=== PATIENT | female | born 1970 | race Caucasian/White ===

== ENCOUNTER 2017-08-11 07:49 | Day surgery (SDC) | payer MEDICAID ==
[~2017-08-11] VITALS: Ht 152.4 cm; Wt 77.4 kg
[~2017-08-11 07:49] MED LIST: FURO-150 PO; HYDR-569 PO; MAGN400C PO; MULT-38 PO; POTA10TA19 PO; SPIR50TA3 PO; THI100T PO
[2017-08-11] MEDS ORDERED: LIDOcaine 1% 30ml vial SQ ONE (08:00)
[2017-08-11 08:10] VITALS: BP 132/84
[2017-08-11] MEDS ORDERED: CYCL-1 PO (08:10)
[2017-08-11] MEDS ORDERED: albumin (human) 25% 100 ML IV solution IV PRN (08:15)
[2017-08-11] MEDS ORDERED: normal saline 1000ml 1,000 ML IV PRN (08:15)
[2017-08-11 08:45] VITALS: BP 115/76
[2017-08-11 09:00] VITALS: BP 108/73
[2017-08-11 09:10] VITALS: BP 106/72
== END 2017-08-11 09:20 | disposition home or self-care (01) ==
LOC: SSTAY O 07:49
PROVIDERS: ATTEND Radiology Diagnostic Radiology
DX: R18.8 Other ascites (principal); Z90.710 Acquired absence of both cervix and uterus; Z90.49 Acquired absence of other specified parts of digestive tract; Z79.899 Other long term (current) drug therapy
CPT/HCPCS: 49083; A6257; J3490; J7030

== ENCOUNTER 2017-09-08 07:44 | Day surgery (SDC) | payer MEDICAID ==
[~2017-09-08] VITALS: Ht 154.9 cm; Wt 80.8 kg
[~2017-09-08 07:44] MED LIST changes: +CYCL-1 PO
[2017-09-08] MEDS ORDERED: normal saline 1000ml 1,000 ML IV PRN (08:05)
[2017-09-08 08:30] VITALS: BP 114/76
[2017-09-08 08:35] VITALS: BP 117/85
[2017-09-08 08:43] VITALS: BP 129/83
[2017-09-08 08:45] VITALS: BP 121/71
[2017-09-08 08:55] VITALS: BP 107/60
[2017-09-08 09:00] VITALS: BP 129/83
== END 2017-09-08 09:00 | disposition home or self-care (01) ==
LOC: SSTAY O 07:44
PROVIDERS: ATTEND Radiology Diagnostic Radiology
DX: R18.8 Other ascites (principal)
CPT/HCPCS: 49083; A6257

== ENCOUNTER 2017-10-18 07:54 | Day surgery (SDC) | payer MEDICAID ==
[~2017-10-18] VITALS: Ht 152.4 cm; Wt 83.3 kg
[2017-10-18] MEDS ORDERED: SPIR50TA3 PO (08:26)
[2017-10-18 08:30] VITALS: BP_SYST 124; BP_SYST 155; BP_DIAS 78; BP_DIAS 85
[2017-10-18] MEDS ORDERED: normal saline 1000ml 1,000 ML IV PRN (08:35)
[2017-10-18] MEDS ORDERED: albumin (human) 25% 100 ML IV solution IV PRN (08:35)
[2017-10-18 08:45] VITALS: BP 122/72
[2017-10-18 08:57] VITALS: BP 112/62
== END 2017-10-18 09:00 | disposition home or self-care (01) ==
LOC: SSTAY O 07:54
PROVIDERS: ATTEND Radiology Diagnostic Radiology
DX: R18.8 Other ascites (principal); E83.42 Hypomagnesemia; Z87.891 Personal history of nicotine dependence; Z98.51 Tubal ligation status; Z90.710 Acquired absence of both cervix and uterus; Z90.49 Acquired absence of other specified parts of digestive tract; Z79.01 Long term (current) use of anticoagulants; Z98.890 Other specified postprocedural states; Z79.899 Other long term (current) drug therapy
CPT/HCPCS: 49083; A6257; J7030

== ENCOUNTER 2017-10-21 07:36 | Emergency (ER) | payer MEDICAID ==
[~2017-10-21] VITALS: Ht 387.1 cm; Wt 80.9 kg
[2017-10-21 09:01] LABS: CLARITY,URINE CLEAR (Clear); COLOR,URINE YELLOW (Yellow); GLUCOSE, URINE NEGATIVE (Neg); KETONES,URINE NEGATIVE (Neg); LEUKOCYTE ESTERASE ,URINE NEGATIVE (Neg); NITRITES, URINE NEGATIVE (Neg); OCCULT BLOOD,URINE NEGATIVE (Neg); PROTEIN,URINE NEGATIVE (Neg); UROBILINOGEN,URINE 0.2 E.U/dL (0.2-1.0)
[2017-10-21 09:03] LABS: UA COLLECTION TYPE CLN CATCH MIDSTREAM
[2017-10-21 09:07] LABS: URINE AMPHETAMINE SCREEN NEGATIVE (Neg); URINE BARBITUATE SCREEN NEGATIVE (Neg); URINE BENZODIAZEPINES SCREEN NEGATIVE (Neg); URINE CANNABINOID SCREEN POSITIVE (Neg); URINE COCAINE SCREEN NEGATIVE (Neg); URINE METHADONE SCREEN NEGATIVE (Neg); URINE OPIATE SCREEN NEGATIVE (Neg); URINE PHENCYCLIDINE SCREEN NEGATIVE (Neg)
[2017-10-21 09:07] LABS: BASOPHILS % (AUTO) 0.5 % (0-1); EOSINOPHILS # (AUTO) 0.1 X10'3 (0-0.9); HEMATOCRIT 41.4 % (35.0-45.0); HEMOGLOBIN 14.3 g/dl (12.0-16.0); LYMPHOCYTES # (AUTO) 0.8 X10'3 (1.1-4.8); LYMPHOCYTES % (AUTO) 11.7 % (21-51); MEAN CORPUSCULAR HEMOGLOBIN 38.4 PG (27.0-31.0); MEAN CORPUSCULAR HGB CONC 34.4 % (33.0-36.5); MEAN CORPUSCULAR VOLUME 111.4 FL (78-98); MEAN PLATELET VOLUME 7.7 FL (7.4-10.4); MONOCYTES # (AUTO) 0.4 X10'3 (0-0.9); MONOCYTES % (AUTO) 6.9 % (2-12); NEUTROPHILS % (AUTO) 78.9 % (42-75); PLATELET COUNT 100 X10'3 (140-440); RED BLOOD COUNT 3.72 X10'6 (4.20-5.60); RED CELL DISTRIBUTION WIDTH 13.9 % (11.5-14.5); WHITE BLOOD COUNT 6.4 X10'3 (4.5-11.0)
[2017-10-21 09:17] LABS: INR 1.4 INR; PARTIAL THROMBOPLASTIN TIME 33 SECONDS (22-32); PROTHROMBIN TIME 14.8 SECONDS (9.0-12.0)
[2017-10-21] MEDS ORDERED: normal saline 1000ML IV soln IVB ONE (09:20)
[2017-10-21 09:26] LABS: ALANINE AMINOTRANSFERASE 35 U/L (12-78); ALBUMIN 2.6 G/DL (3.4-5.0); ALBUMIN/GLOBULIN RATIO 0.5 (1.1-1.5); ALKALINE PHOSPHATASE 114 IU/L (46-116); ANION GAP 9 (8-16); ASPARTATE AMINO TRANSFERASE 70 U/L (10-37); BILIRUBIN,TOTAL 1.6 MG/DL (0.1-1.0); BLOOD UREA NITROGEN 10 MG/DL (7-18); BUN/CREATININE RATIO 14.1 (6.6-38.0); CALCIUM 8.4 MG/DL (8.5-10.1); CHLORIDE 105 MMOL/L (99-107); CREATININE 0.71 MG/DL (0.40-0.90); SODIUM 141 MMOL/L (135-145); TOTAL CARBON DIOXIDE 27.2 MMOL/L (24-32); eGFR 89 ML/MIN
[2017-10-21 09:28] LABS: ETHANOL < 0.010 GM/DL (0.0-0.010); GLUCOSE 113 MG/DL (70-104)
[2017-10-21 09:41] LABS: PLATELET ESTIMATE DECREASED
[2017-10-21 09:42] LABS: ACETAMINOPHEN < 2.0 UG/ML (10-30)
[2017-10-21] MEDS ORDERED: potassium Cl 20 mEq SR tablet PO ONE (10:00)
[2017-10-21 10:09] LABS: OCCULT BLOOD STOOL NEGATIVE (Neg)
[2017-10-21 11:17] VITALS: BP 125/74
== END 2017-10-21 11:19 | disposition home or self-care (01) ==
LOC: ER 07:37
DX: D68.9 Coagulation defect, unspecified (principal); E87.6 Hypokalemia; D69.6 Thrombocytopenia, unspecified; K72.90 Hepatic failure, unspecified without coma; F17.210 Nicotine dependence, cigarettes, uncomplicated; Z90.49 Acquired absence of other specified parts of digestive tract; Z98.890 Other specified postprocedural states; Z90.710 Acquired absence of both cervix and uterus; Z79.899 Other long term (current) drug therapy
CPT/HCPCS: 36415; 80053; 80305; 80320; 80329; 81003; 82140; 82272; 85025; 85384; 85610; 85730; 96360; 99284; J7030

== ENCOUNTER 2017-12-23 06:54 | Day surgery (SDC) | payer MEDICAID ==
[~2017-12-23] VITALS: Ht 182.9 cm; Wt 85.6 kg
[~2017-12-23 06:54] MED LIST changes: +LIDOcaine 1% (10mg/ml) 5ml syringe IJ ONE; -SPIR50TA3 PO; +SPIR50TA5 PO
[2017-12-23] MEDS ORDERED: LIDOcaine 1% (10mg/ml) 2ml vial SQ ONE (07:15)
[2017-12-23] MEDS ORDERED: FERR324T4 PO (07:17)
[2017-12-23 07:20] VITALS: BP 129/73
[2017-12-23] MEDS ORDERED: normal saline 1000ml 1,000 ML IV PRN (07:25)
[2017-12-23] MEDS ORDERED: albumin (human) 25% 100 ML IV solution IV PRN (07:25)
[2017-12-23 08:15] VITALS: BP 129/73
== END 2017-12-23 08:20 | disposition home or self-care (01) ==
LOC: SSTAY O 06:54
PROVIDERS: ATTEND Radiology Diagnostic Radiology
DX: R14.0 Abdominal distension (gaseous) (principal); E83.42 Hypomagnesemia; Z87.891 Personal history of nicotine dependence; Z98.51 Tubal ligation status; Z90.49 Acquired absence of other specified parts of digestive tract; Z90.710 Acquired absence of both cervix and uterus; Z79.891 Long term (current) use of opiate analgesic; Z98.890 Other specified postprocedural states; Z79.899 Other long term (current) drug therapy
CPT/HCPCS: 76705; J7030; J2001

== ENCOUNTER 2018-05-01 17:22 | Inpatient (IN) | payer MEDICAID ==
[~2018-05-01] VITALS: Ht 167.6 cm; Wt 110.0 kg
[~2018-05-01 17:22] MED LIST changes: +FERR324T4 PO; +HYDR-4383 PO; -HYDR-569 PO; -LIDOcaine 1% (10mg/ml) 5ml syringe IJ ONE
[2018-05-01 17:56] LABS: BASOPHILS # (AUTO) 0.2 X10'3 (0-0.2); BASOPHILS % (AUTO) 1.6 % (0-1); EOSINOPHILS # (AUTO) 0.1 X10'3 (0-0.9); EOSINOPHILS % (AUTO) 0.8 % (0-6); HEMATOCRIT 39.3 % (35.0-45.0); HEMOGLOBIN 13.1 g/dl (12.0-16.0); LYMPHOCYTES # (AUTO) 0.8 X10'3 (1.1-4.8); LYMPHOCYTES % (AUTO) 6.8 % (21-51); MEAN CORPUSCULAR HEMOGLOBIN 37.7 PG (27.0-31.0); MEAN CORPUSCULAR HGB CONC 33.4 % (33.0-36.5); MEAN PLATELET VOLUME 7.6 FL (7.4-10.4); MONOCYTES # (AUTO) 0.6 X10'3 (0-0.9); MONOCYTES % (AUTO) 5.4 % (2-12); NEUTROPHILS # (AUTO) 9.5 X10'3 (1.8-7.7); NEUTROPHILS % (AUTO) 85.4 % (42-75); PLATELET COUNT 130 X10'3 (140-440); RED BLOOD COUNT 3.48 X10'6 (4.20-5.60); RED CELL DISTRIBUTION WIDTH 14.7 % (11.5-14.5); WHITE BLOOD COUNT 11.2 X10'3 (4.5-11.0)
[2018-05-01 18:01] LABS: MEAN CORPUSCULAR VOLUME 112.9 FL (78-98)
[2018-05-01 18:06] LABS: INR 1.9 INR; PARTIAL THROMBOPLASTIN TIME 35 SECONDS (22-32); PROTHROMBIN TIME 18.8 SECONDS (9.0-12.0)
[2018-05-01 18:09] LABS: PLATELET ESTIMATE DECREASED
[2018-05-01 18:10] LABS: ALANINE AMINOTRANSFERASE 29 U/L (12-78); ALBUMIN 2.5 G/DL (3.4-5.0); ALKALINE PHOSPHATASE 172 IU/L (46-116); ANION GAP 10 (8-16); ASPARTATE AMINO TRANSFERASE 68 U/L (10-37); BLOOD UREA NITROGEN 24 MG/DL (7-18); BUN/CREATININE RATIO 12.2 (6.6-38.0); CALCIUM 9.5 MG/DL (8.5-10.1); CHLORIDE 89 MMOL/L (99-107); CREATININE 1.96 MG/DL (0.40-0.90); MAGNESIUM 2.9 MG/DL (1.5-2.4); POTASSIUM 3.9 MMOL/L (3.5-5.1); SODIUM 130 MMOL/L (135-145); TOTAL CARBON DIOXIDE 31.4 MMOL/L (24-32); eGFR 27 ML/MIN
[2018-05-01 18:29] LABS: ALBUMIN/GLOBULIN RATIO 0.4 (1.1-1.5); GLUCOSE 152 MG/DL (70-104); TOTAL PROTEIN 8.1 G/DL (6.4-8.2)
[2018-05-01 18:30] LABS: BILIRUBIN,TOTAL 8.9 MG/DL (0.1-1.0)
[2018-05-01] MEDS ORDERED: normal saline 1000ML IV soln IV ONE (18:30)
[2018-05-01] MEDS ORDERED: lactulose 20gm/30ml cup PO ONE (18:30)
[2018-05-01] MEDS ORDERED: CefTRIAXone 2gm/D5W 50ml 50 ML IV ONE (18:30)
[2018-05-01 18:37] LABS: BILIRUBIN,DIRECT 5.2 MG/DL (0-0.3)
[2018-05-01] MEDS ORDERED: albumin (human) 25% 100 ML IV solution IV ONE (18:45)
[2018-05-01 19:16] LABS: CLARITY,URINE CLEAR (Clear); COLOR,URINE DARK YELLOW (Yellow); GLUCOSE, URINE 100 mg/dl (Neg); KETONES,URINE TRACE mg/dl (Neg); LEUKOCYTE ESTERASE ,URINE NEGATIVE (Neg); NITRITES, URINE POSITIVE (Neg); OCCULT BLOOD,URINE TRACE-INTACT (Neg); PROTEIN,URINE TRACE mg/dl (Neg); UA COLLECTION TYPE CLN CATCH MIDSTREAM
[2018-05-01 19:20] LABS: URINE HCG NEGATIVE (NEG)
[2018-05-01 19:23] LABS: BACTERIA,URINE 2+ /HPF (Neg); MUCUS STRANDS NONE SEEN /LPF (Neg); RBC,URINE 0-2 /HPF (0-2); SQUAMOUS EPITHELIAL CELL,UR FEW /LPF (FEW)
[2018-05-01 19:28] LABS: URINE AMPHETAMINE SCREEN NEGATIVE (Neg); URINE BARBITUATE SCREEN NEGATIVE (Neg); URINE BENZODIAZEPINES SCREEN NEGATIVE (Neg); URINE CANNABINOID SCREEN POSITIVE (Neg); URINE COCAINE SCREEN NEGATIVE (Neg); URINE METHADONE SCREEN NEGATIVE (Neg); URINE OPIATE SCREEN POSITIVE (Neg); URINE PHENCYCLIDINE SCREEN NEGATIVE (Neg)
[2018-05-01] MEDS ORDERED: ondansetron/PF 4mg/2ml inj IV PRN (19:35)
[2018-05-01] MEDS: lactulose 20gm/30ml cup PO SCH (20:21)
[2018-05-01] MEDS ORDERED: OMEP40CA37 PO (20:34)
[2018-05-01] MEDS ORDERED: NADO20TA PO (20:34)
[2018-05-01] MEDS ORDERED: FURO40TA4 PO (20:34)
[2018-05-01] MEDS ORDERED: POTA-82 PO (20:34)
[2018-05-01 21:30] VITALS: BP 124/69
[2018-05-01] MEDS: heparin, porcine 5000 units/ml vial SQ SCH (23:01)
[2018-05-02] VITALS: BP 112/65
[2018-05-02 06:48] LABS: BASOPHILS % (AUTO) 0.4 % (0-1); EOSINOPHILS # (AUTO) 0.1 X10'3 (0-0.9); EOSINOPHILS % (AUTO) 1.6 % (0-6); HEMATOCRIT 34.6 % (35.0-45.0); HEMOGLOBIN 11.5 g/dl (12.0-16.0); LYMPHOCYTES # (AUTO) 1.5 X10'3 (1.1-4.8); LYMPHOCYTES % (AUTO) 15.5 % (21-51); MEAN CORPUSCULAR HEMOGLOBIN 38.2 PG (27.0-31.0); MEAN CORPUSCULAR HGB CONC 33.3 % (33.0-36.5); MEAN CORPUSCULAR VOLUME 114.8 FL (78-98); MEAN PLATELET VOLUME 7.8 FL (7.4-10.4); MONOCYTES # (AUTO) 0.7 X10'3 (0-0.9); MONOCYTES % (AUTO) 6.9 % (2-12); NEUTROPHILS # (AUTO) 7.3 X10'3 (1.8-7.7); NEUTROPHILS % (AUTO) 75.6 % (42-75); PLATELET COUNT 104 X10'3 (140-440); RED BLOOD COUNT 3.01 X10'6 (4.20-5.60); RED CELL DISTRIBUTION WIDTH 15.1 % (11.5-14.5); WHITE BLOOD COUNT 9.6 X10'3 (4.5-11.0)
[2018-05-02 07:04] LABS: ALANINE AMINOTRANSFERASE 29 U/L (12-78); ALBUMIN 2.7 G/DL (3.4-5.0); ALKALINE PHOSPHATASE 140 IU/L (46-116); ANION GAP 11 (8-16); ASPARTATE AMINO TRANSFERASE 59 U/L (10-37); BILIRUBIN,TOTAL 5.7 MG/DL (0.1-1.0); BLOOD UREA NITROGEN 22 MG/DL (7-18); BUN/CREATININE RATIO 12.6 (6.6-38.0); CALCIUM 8.5 MG/DL (8.5-10.1); CHLORIDE 95 MMOL/L (99-107); CREATININE 1.75 MG/DL (0.40-0.90); SODIUM 136 MMOL/L (135-145); TOTAL CARBON DIOXIDE 30.1 MMOL/L (24-32); eGFR 31 ML/MIN
[2018-05-02 07:06] LABS: ALBUMIN/GLOBULIN RATIO 0.6 (1.1-1.5); GLUCOSE 119 MG/DL (70-104); TOTAL PROTEIN 7.5 G/DL (6.4-8.2)
[2018-05-02 07:21] LABS: POTASSIUM 2.8 MMOL/L (3.5-5.1)
[2018-05-02 07:43] LABS: PLATELET ESTIMATE DECREASED; POLYCHROMASIA 1+
[2018-05-02] MEDS: lactulose 20gm/30ml cup PO SCH ×3 (07:45→21:08)
[2018-05-02] MEDS: spironolactone 50 MG tablet PO SCH (07:45)
[2018-05-02] MEDS: heparin, porcine 5000 units/ml vial SQ SCH ×2 (07:47→20:00)
[2018-05-02] MEDS: CefTRIAXone/D5W-Rocephin 1gm 50 ML IV SCH (07:47)
[2018-05-02 08:49] VITALS: BP 123/70
[2018-05-02] MEDS ORDERED: magnesium 4gm in 100ml NS 100 ML IV PRN (08:50)
[2018-05-02] MEDS ORDERED: potassium Cl 20 mEq SR tablet PO PRN (08:50)
[2018-05-02] MEDS ORDERED: magnesium 1gm/100ml D5W IVPB 100 ML IV PRN (08:50)
[2018-05-02] MEDS ORDERED: magnesium Cl slow-release 64mg tablet PO PRN (08:50)
[2018-05-02] MEDS ORDERED: potassium Cl 40MEQ/NS 500ml 500 ML IV PRN ×2 (08:50)
[2018-05-02] MEDS: potassium Cl 20 mEq SR tablet PO PRN ×3 (09:08→18:10)
[2018-05-02 11:00] VITALS: BP 123/70
[2018-05-02 20:00] VITALS: BP 98/61
[2018-05-03] VITALS (9 sets, daily range): BP systolic 99–131; BP diastolic 56–76
[2018-05-03 04:43] LABS: BASOPHILS % (AUTO) 0.5 % (0-1); EOSINOPHILS # (AUTO) 0.2 X10'3 (0-0.9); EOSINOPHILS % (AUTO) 2.8 % (0-6); HEMATOCRIT 29.3 % (35.0-45.0); HEMOGLOBIN 9.7 g/dl (12.0-16.0); LYMPHOCYTES # (AUTO) 1.6 X10'3 (1.1-4.8); LYMPHOCYTES % (AUTO) 27.7 % (21-51); MEAN CORPUSCULAR HEMOGLOBIN 37.6 PG (27.0-31.0); MEAN CORPUSCULAR HGB CONC 33.1 % (33.0-36.5); MEAN CORPUSCULAR VOLUME 113.6 FL (78-98); MEAN PLATELET VOLUME 7.3 FL (7.4-10.4); MONOCYTES # (AUTO) 0.7 X10'3 (0-0.9); MONOCYTES % (AUTO) 11.7 % (2-12); NEUTROPHILS # (AUTO) 3.2 X10'3 (1.8-7.7); NEUTROPHILS % (AUTO) 57.3 % (42-75); PLATELET COUNT 74 X10'3 (140-440); RED BLOOD COUNT 2.58 X10'6 (4.20-5.60); WHITE BLOOD COUNT 5.7 X10'3 (4.5-11.0)
[2018-05-03 05:06] LABS: ALANINE AMINOTRANSFERASE 23 U/L (12-78); ALKALINE PHOSPHATASE 109 IU/L (46-116); ANION GAP 7 (8-16); ASPARTATE AMINO TRANSFERASE 57 U/L (10-37); BILIRUBIN,TOTAL 4.5 MG/DL (0.1-1.0); BLOOD UREA NITROGEN 16 MG/DL (7-18); BUN/CREATININE RATIO 14.4 (6.6-38.0); CALCIUM 8.1 MG/DL (8.5-10.1); CHLORIDE 101 MMOL/L (99-107); CREATININE 1.11 MG/DL (0.40-0.90); MAGNESIUM 2.2 MG/DL (1.5-2.4); SODIUM 135 MMOL/L (135-145); TOTAL CARBON DIOXIDE 27.4 MMOL/L (24-32); eGFR 53 ML/MIN
[2018-05-03 05:09] LABS: PLATELET ESTIMATE DECREASED
[2018-05-03 05:15] LABS: ALBUMIN/GLOBULIN RATIO 0.5 (1.1-1.5); GLUCOSE 68 MG/DL (70-104); POTASSIUM 4.7 MMOL/L (3.5-5.1); TOTAL PROTEIN 5.8 G/DL (6.4-8.2)
[2018-05-03] MEDS: heparin, porcine 5000 units/ml vial SQ SCH (06:28)
[2018-05-03] MEDS: lactulose 20gm/30ml cup PO SCH ×2 (08:06→12:26)
[2018-05-03] MEDS: CefTRIAXone/D5W-Rocephin 1gm 50 ML IV SCH (08:06)
[2018-05-03] MEDS: spironolactone 50 MG tablet PO SCH (08:06)
[2018-05-03 08:43] LABS: PROTHROMBIN TIME 20.1 SECONDS (9.0-12.0)
[2018-05-03] MEDS ORDERED: oxyCODONE IR 5mg (immed. release) tablet PO PRN (12:40)
[2018-05-03] MEDS ORDERED: HYDR-3564 PO (14:44)
[2018-05-03] MEDS ORDERED: phytonadione inj. 10 MG in normal saline 100ml IV soln 99 ML IV ONE (14:45)
== END 2018-05-03 16:30 | disposition home or self-care (01) | DRG 469 ==
LOC: ER 17:23 → ED HOLD 19:32 → EDBEDREQ 20:49 → CMPBEDREQ 21:21 → SUR 3N 21:25
PROVIDERS: ADMIT Internal Medicine; ATTEND Family Medicine
PROC: 0W9G3ZZ Drainage of Peritoneal Cavity, Percutaneous Approach (ICD-10-PCS; principal; 2018-05-03)
DX: N17.9 Acute kidney failure, unspecified (principal); K72.00 Acute and subacute hepatic failure without coma; K70.31 Alcoholic cirrhosis of liver with ascites; K72.10 Chronic hepatic failure without coma; E87.6 Hypokalemia; B19.20 Unspecified viral hepatitis C without hepatic coma; Z90.49 Acquired absence of other specified parts of digestive tract; Z90.710 Acquired absence of both cervix and uterus; Z98.891 History of uterine scar from previous surgery; Z79.899 Other long term (current) drug therapy
CPT/HCPCS: 36415; 49083; 71045; 80053; 80305; 81001; 81025; 82140; 82248; 83605; 83735; 84132; 84145; 85025; 85610; 85730; 87040; 87070; 87088; 93005; 96365; 96375; 99285; A6258; J0696; J1644; J3430; J7030; P9047

== ENCOUNTER 2018-05-23 13:26 | Emergency (ER) | payer MEDICAID ==
[~2018-05-23] VITALS: Ht 162.6 cm; Wt 77.3 kg
[~2018-05-23 13:26] MED LIST changes: -FERR324T4 PO; -FURO-150 PO; +FURO40TA4 PO; +HYDR-3564 PO; -HYDR-4383 PO; +NADO20TA PO; +OMEP40CA37 PO; +POTA-82 PO; -POTA10TA19 PO
[2018-05-23 13:35] VITALS: BP 113/80
[2018-05-23 14:40] LABS: BASOPHILS % (AUTO) 0.6 % (0-1); EOSINOPHILS # (AUTO) 0.1 X10'3 (0-0.9); HEMATOCRIT 38.1 % (35.0-45.0); HEMOGLOBIN 12.7 g/dl (12.0-16.0); LYMPHOCYTES # (AUTO) 1.5 X10'3 (1.1-4.8); LYMPHOCYTES % (AUTO) 20.7 % (21-51); MEAN CORPUSCULAR HEMOGLOBIN 37.9 PG (27.0-31.0); MEAN CORPUSCULAR HGB CONC 33.2 % (33.0-36.5); MEAN CORPUSCULAR VOLUME 113.9 FL (78-98); MONOCYTES % (AUTO) 13.8 % (2-12); NEUTROPHILS # (AUTO) 4.5 X10'3 (1.8-7.7); NEUTROPHILS % (AUTO) 62.9 % (42-75); PLATELET COUNT 113 X10'3 (140-440); RED BLOOD COUNT 3.34 X10'6 (4.20-5.60); RED CELL DISTRIBUTION WIDTH 15.6 % (11.5-14.5); WHITE BLOOD COUNT 7.1 X10'3 (4.5-11.0)
[2018-05-23 14:45] LABS: ALANINE AMINOTRANSFERASE 29 U/L (12-78); ALBUMIN 2.4 G/DL (3.4-5.0); ALKALINE PHOSPHATASE 144 IU/L (46-116); ANION GAP 8 (8-16); ASPARTATE AMINO TRANSFERASE 87 U/L (10-37); BILIRUBIN,TOTAL 6.6 MG/DL (0.1-1.0); BLOOD UREA NITROGEN 27 MG/DL (7-18); BUN/CREATININE RATIO 15.1 (6.6-38.0); CALCIUM 8.9 MG/DL (8.5-10.1); CHLORIDE 98 MMOL/L (99-107); CREATININE 1.79 MG/DL (0.40-0.90); POTASSIUM 4.1 MMOL/L (3.5-5.1); SODIUM 133 MMOL/L (135-145); TOTAL CARBON DIOXIDE 26.8 MMOL/L (24-32); eGFR 30 ML/MIN
[2018-05-23 14:49] LABS: ALBUMIN/GLOBULIN RATIO 0.5 (1.1-1.5); GLUCOSE 124 MG/DL (70-104); TOTAL PROTEIN 7.4 G/DL (6.4-8.2)
[2018-05-23 14:50] LABS: URINE HCG NEGATIVE (NEG)
[2018-05-23 14:51] LABS: INR 1.7 INR; PROTHROMBIN TIME 16.9 SECONDS (9.0-12.0)
[2018-05-23 14:57] LABS: GLUCOSE, URINE 100 mg/dl (Neg); KETONES,URINE TRACE mg/dl (Neg); LEUKOCYTE ESTERASE ,URINE NEGATIVE (Neg); OCCULT BLOOD,URINE NEGATIVE (Neg); PROTEIN,URINE NEGATIVE (Neg)
[2018-05-23 14:58] LABS: UA COLLECTION TYPE CLN CATCH MIDSTREAM
[2018-05-23 15:00] LABS: COLOR,URINE DARK YELLOW (Yellow)
[2018-05-23 15:01] LABS: NITRITES, URINE NEGATIVE (Neg)
[2018-05-23 15:02] LABS: CLARITY,URINE Slightly Cloudy (Clear)
[2018-05-23 15:03] LABS: BACTERIA,URINE NONE SEEN /HPF (Neg); RBC,URINE NONE SEEN /HPF (0-2); SQUAMOUS EPITHELIAL CELL,UR FEW /LPF (FEW); WBC,URINE NONE SEEN /HPF (0-4)
== END 2018-05-23 16:48 | disposition left against medical advice (07) ==
LOC: ER 13:26
DX: R14.0 Abdominal distension (gaseous) (principal); R10.9 Unspecified abdominal pain
CPT/HCPCS: 36415; 80053; 81001; 81025; 82140; 85025; 85610; 99281

== ENCOUNTER 2018-05-26 06:43 | Day surgery (SDC) | payer MEDICAID ==
[~2018-05-26 06:43] MED LIST changes: +LIDOcaine 1% 30ml preserv. free vial SQ STA
[2018-05-26 07:00] VITALS: BP 103/47
[2018-05-26 08:30] VITALS: BP 101/59
[2018-05-26 08:45] VITALS: BP 103/68
[2018-05-26 08:54] VITALS: BP 103/68
== END 2018-05-26 09:00 | disposition home or self-care (01) ==
LOC: SSTAY O 06:43
PROVIDERS: ATTEND Radiology Diagnostic Radiology
DX: K70.31 Alcoholic cirrhosis of liver with ascites (principal); N93.8 Other specified abnormal uterine and vaginal bleeding; Z90.710 Acquired absence of both cervix and uterus; Z90.49 Acquired absence of other specified parts of digestive tract; Z79.891 Long term (current) use of opiate analgesic; Z87.891 Personal history of nicotine dependence; Z87.42 Personal history of other diseases of the female genital tract; Z98.51 Tubal ligation status; Z79.899 Other long term (current) drug therapy; Z98.890 Other specified postprocedural states
CPT/HCPCS: 49083; J3490

== ENCOUNTER 2018-05-27 09:29 | Inpatient (IN) | payer MEDICAID ==
[~2018-05-27] VITALS: Ht 165.1 cm; Wt 77.3 kg
[~2018-05-27 09:29] MED LIST changes: -LIDOcaine 1% 30ml preserv. free vial SQ STA
[2018-05-27 10:39] LABS: ALANINE AMINOTRANSFERASE 35 U/L (12-78); ALBUMIN 2.5 G/DL (3.4-5.0); ALKALINE PHOSPHATASE 159 IU/L (46-116); ANION GAP 9 (8-16); CALCIUM 8.3 MG/DL (8.5-10.1); CHLORIDE 99 MMOL/L (99-107); CREATININE 1.26 MG/DL (0.40-0.90); ETHANOL < 0.010 GM/DL (0.0-0.010); POTASSIUM 4.5 MMOL/L (3.5-5.1); SODIUM 135 MMOL/L (135-145); TOTAL CARBON DIOXIDE 27.1 MMOL/L (24-32); eGFR 46 ML/MIN
[2018-05-27 10:45] LABS: ALBUMIN/GLOBULIN RATIO 0.5 (1.1-1.5); ASPARTATE AMINO TRANSFERASE 100 U/L (10-37); BILIRUBIN,TOTAL 8.2 MG/DL (0.1-1.0); BLOOD UREA NITROGEN 18 MG/DL (7-18); BUN/CREATININE RATIO 14.3 (6.6-38.0); GLUCOSE 104 MG/DL (70-104); TOTAL PROTEIN 7.9 G/DL (6.4-8.2)
[2018-05-27 10:47] LABS: ACETAMINOPHEN < 2.0 UG/ML (10-30)
[2018-05-27 11:49] LABS: INR 1.7 INR; PARTIAL THROMBOPLASTIN TIME 31 SECONDS (22-32); PROTHROMBIN TIME 16.6 SECONDS (9.0-12.0)
[2018-05-27 11:50] LABS: BASOPHILS % (AUTO) 0.2 % (0-1); EOSINOPHILS # (AUTO) 0.1 X10'3 (0-0.9); EOSINOPHILS % (AUTO) 1.7 % (0-6); HEMATOCRIT 41.3 % (35.0-45.0); HEMOGLOBIN 13.7 g/dl (12.0-16.0); LYMPHOCYTES # (AUTO) 1.4 X10'3 (1.1-4.8); LYMPHOCYTES % (AUTO) 21.2 % (21-51); MEAN CORPUSCULAR HEMOGLOBIN 37.9 PG (27.0-31.0); MEAN CORPUSCULAR HGB CONC 33.2 % (33.0-36.5); MEAN CORPUSCULAR VOLUME 114.3 FL (78-98); MEAN PLATELET VOLUME 7.1 FL (7.4-10.4); MONOCYTES # (AUTO) 0.8 X10'3 (0-0.9); MONOCYTES % (AUTO) 11.1 % (2-12); NEUTROPHILS # (AUTO) 4.4 X10'3 (1.8-7.7); NEUTROPHILS % (AUTO) 65.8 % (42-75); PLATELET COUNT 102 X10'3 (140-440); RED BLOOD COUNT 3.61 X10'6 (4.20-5.60); RED CELL DISTRIBUTION WIDTH 16.2 % (11.5-14.5); WHITE BLOOD COUNT 6.8 X10'3 (4.5-11.0)
[2018-05-27] MEDS ORDERED: lactulose 20gm/30ml cup PO ONE (11:50)
[2018-05-27] MEDS ORDERED: normal saline 1000ML IV soln IVB ONE (11:55)
[2018-05-27 11:56] LABS: CLARITY,URINE CLOUDY (Clear); COLOR,URINE AMBER (Yellow)
[2018-05-27 12:02] LABS: UA COLLECTION TYPE STRAIGHT CATH
[2018-05-27 12:08] LABS: BACTERIA,URINE FEW /HPF (Neg); RBC,URINE 50-100 /HPF (0-2)
[2018-05-27 12:09] LABS: HYALINE CASTS >30 /LPF (NEGATIVE); MUCUS STRANDS FEW /LPF (Neg); SQUAMOUS EPITHELIAL CELL,UR FEW /LPF (FEW); TRANSITIONAL EPI CELLS,URINE FEW /HPF
[2018-05-27] MEDS ORDERED: cephalexin 250mg capsule PO ONE (12:15)
[2018-05-27 12:19] LABS: PLATELET ESTIMATE DECREASED
[2018-05-27 12:19] LABS: URINE AMPHETAMINE SCREEN NEGATIVE (Neg); URINE BARBITUATE SCREEN NEGATIVE (Neg); URINE BENZODIAZEPINES SCREEN NEGATIVE (Neg); URINE CANNABINOID SCREEN POSITIVE (Neg); URINE COCAINE SCREEN NEGATIVE (Neg); URINE METHADONE SCREEN NEGATIVE (Neg); URINE OPIATE SCREEN POSITIVE (Neg); URINE PHENCYCLIDINE SCREEN NEGATIVE (Neg)
[2018-05-27 12:20] LABS: ANISOCYTOSIS 1+; POLYCHROMASIA 1+; ROULEAUX 1+; TARGET CELLS FEW
[2018-05-27] MEDS ORDERED: magnesium 1gm/100ml D5W IVPB 100 ML IV PRN (13:25)
[2018-05-27] MEDS ORDERED: magnesium Cl slow-release 64mg tablet PO PRN (13:25)
[2018-05-27] MEDS ORDERED: ondansetron/PF 4mg/2ml inj IV PRN (13:25)
[2018-05-27] MEDS ORDERED: mag hydrox/Alum hydrox/simeth 30ml oral suspension PO PRN (13:25)
[2018-05-27] MEDS ORDERED: potassium Cl 20 mEq SR tablet PO PRN ×2 (13:25)
[2018-05-27] MEDS ORDERED: magnesium hydroxide 30ml (MOM) UD suspension PO PRN (13:25)
[2018-05-27] MEDS ORDERED: magnesium 4gm in 100ml NS 100 ML IV PRN (13:25)
[2018-05-27] MEDS ORDERED: acetaminophen 325mg tablet PO PRN ×2 (13:25)
[2018-05-27] MEDS ORDERED: potassium Cl 40MEQ/NS 500ml 500 ML IV PRN ×2 (13:25)
[2018-05-27 15:26] VITALS: BP 121/88
[2018-05-27] MEDS: lactulose 20gm/30ml cup PO SCH (15:43)
[2018-05-27 19:00] VITALS: BP 117/70
[2018-05-27] MEDS: atenolol 25mg tablet PO SCH (21:20)
[2018-05-27] MEDS: pantoprazole 40mg Tablet.DR PO SCH (21:20)
[2018-05-27] MEDS: heparin, porcine 5000 units/ml vial SQ SCH (21:21)
[2018-05-28] VITALS: BP 114/73
[2018-05-28] MEDS: lactulose 20gm/30ml cup PO SCH ×4 (00:24→23:53)
[2018-05-28 06:25] LABS: BASOPHILS # (AUTO) 0.1 X10'3 (0-0.2); BASOPHILS % (AUTO) 1.1 % (0-1); EOSINOPHILS # (AUTO) 0.1 X10'3 (0-0.9); HEMATOCRIT 33.2 % (35.0-45.0); LYMPHOCYTES # (AUTO) 1.5 X10'3 (1.1-4.8); MEAN CORPUSCULAR HEMOGLOBIN 37.6 PG (27.0-31.0); MEAN CORPUSCULAR HGB CONC 33.1 % (33.0-36.5); MEAN CORPUSCULAR VOLUME 113.6 FL (78-98); MEAN PLATELET VOLUME 7.4 FL (7.4-10.4); MONOCYTES # (AUTO) 0.6 X10'3 (0-0.9); MONOCYTES % (AUTO) 9.7 % (2-12); NEUTROPHILS # (AUTO) 4.2 X10'3 (1.8-7.7); NEUTROPHILS % (AUTO) 64.2 % (42-75); PLATELET COUNT 73 X10'3 (140-440); RED BLOOD COUNT 2.92 X10'6 (4.20-5.60); RED CELL DISTRIBUTION WIDTH 15.6 % (11.5-14.5); WHITE BLOOD COUNT 6.5 X10'3 (4.5-11.0)
[2018-05-28 06:55] LABS: ALANINE AMINOTRANSFERASE 29 U/L (12-78); ALBUMIN 1.9 G/DL (3.4-5.0); ALKALINE PHOSPHATASE 120 IU/L (46-116); ANION GAP 10 (8-16); ASPARTATE AMINO TRANSFERASE 76 U/L (10-37); BILIRUBIN,TOTAL 6.5 MG/DL (0.1-1.0); BLOOD UREA NITROGEN 20 MG/DL (7-18); BUN/CREATININE RATIO 14.4 (6.6-38.0); CALCIUM 8.2 MG/DL (8.5-10.1); CHLORIDE 101 MMOL/L (99-107); CREATININE 1.39 MG/DL (0.40-0.90); MAGNESIUM 1.8 MG/DL (1.5-2.4); SODIUM 135 MMOL/L (135-145); TOTAL CARBON DIOXIDE 24.1 MMOL/L (24-32); eGFR 41 ML/MIN
[2018-05-28 06:59] LABS: INR 1.8 INR
[2018-05-28 07:00] VITALS: BP 93/64
[2018-05-28 07:08] LABS: ANISOCYTOSIS 1+; PLATELET ESTIMATE DECREASED
[2018-05-28 07:13] LABS: ALBUMIN/GLOBULIN RATIO 0.4 (1.1-1.5); TOTAL PROTEIN 6.4 G/DL (6.4-8.2)
[2018-05-28 07:20] LABS: GLUCOSE 86 MG/DL (70-104)
[2018-05-28] MEDS: traMADol 50MG tablet PO PRN ×2 (07:22→15:26)
[2018-05-28] MEDS: thiamine 100mg tablet PO SCH (07:22)
[2018-05-28] MEDS: potassium Cl 20 mEq SR tablet PO SCH (07:23)
[2018-05-28] MEDS: pantoprazole 40mg Tablet.DR PO SCH ×2 (07:23→20:02)
[2018-05-28] MEDS: magnesium oxide 400mg tablet PO SCH (07:24)
[2018-05-28] MEDS: multivitamins, therapeutics tablet PO SCH (07:24)
[2018-05-28] MEDS: furosemide 40mg tablet PO SCH (07:25)
[2018-05-28] MEDS: spironolactone 50 MG tablet PO SCH (07:26)
[2018-05-28] MEDS: K and/or MAG REPLACEMENT MC SCH (07:33)
[2018-05-28] MEDS: heparin, porcine 5000 units/ml vial SQ SCH ×3 (07:35→20:02)
[2018-05-28] MEDS ORDERED: pneumococcal 23-VAL P-sac vacc 25 mcg/0.5ml vial IMVAC ONE (10:00)
[2018-05-28 11:00] VITALS: BP 103/68
[2018-05-28] MEDS: CefTRIAXone/D5W-Rocephin 1gm 50 ML IV SCH (12:31)
[2018-05-28] MEDS: sodium chloride 0.45% 1,000 ML IV SCH (12:31)
[2018-05-28 20:00] VITALS: BP 117/48
[2018-05-28] MEDS: atenolol 25mg tablet PO SCH (20:03)
[2018-05-29 00:07] VITALS: BP 93/61
[2018-05-29] MEDS: sodium chloride 0.45% 1,000 ML IV SCH ×2 (02:33→17:33)
[2018-05-29] MEDS: heparin, porcine 5000 units/ml vial SQ SCH (07:20)
[2018-05-29] MEDS: furosemide 40mg tablet PO SCH ×2 (07:23→11:34)
[2018-05-29 07:37] LABS: BASOPHILS % (AUTO) 0.5 % (0-1); EOSINOPHILS # (AUTO) 0.1 X10'3 (0-0.9); EOSINOPHILS % (AUTO) 2.1 % (0-6); HEMATOCRIT 32.5 % (35.0-45.0); HEMOGLOBIN 10.8 g/dl (12.0-16.0); LYMPHOCYTES # (AUTO) 1.2 X10'3 (1.1-4.8); LYMPHOCYTES % (AUTO) 22.6 % (21-51); MEAN CORPUSCULAR HEMOGLOBIN 37.4 PG (27.0-31.0); MEAN CORPUSCULAR HGB CONC 33.1 % (33.0-36.5); MEAN PLATELET VOLUME 7.2 FL (7.4-10.4); MONOCYTES # (AUTO) 0.6 X10'3 (0-0.9); MONOCYTES % (AUTO) 10.7 % (2-12); NEUTROPHILS # (AUTO) 3.4 X10'3 (1.8-7.7); NEUTROPHILS % (AUTO) 64.1 % (42-75); PLATELET COUNT 72 X10'3 (140-440); RED BLOOD COUNT 2.88 X10'6 (4.20-5.60); RED CELL DISTRIBUTION WIDTH 15.5 % (11.5-14.5); WHITE BLOOD COUNT 5.2 X10'3 (4.5-11.0)
[2018-05-29 07:50] VITALS: BP 92/51
[2018-05-29 07:52] LABS: INR 1.8 INR; PROTHROMBIN TIME 18.1 SECONDS (9.0-12.0)
[2018-05-29] MEDS: K and/or MAG REPLACEMENT MC SCH (08:00)
[2018-05-29 08:05] LABS: ALANINE AMINOTRANSFERASE 29 U/L (12-78); ALBUMIN 1.8 G/DL (3.4-5.0); ALKALINE PHOSPHATASE 117 IU/L (46-116); ANION GAP 6 (8-16); ASPARTATE AMINO TRANSFERASE 76 U/L (10-37); BILIRUBIN,TOTAL 5.4 MG/DL (0.1-1.0); BLOOD UREA NITROGEN 17 MG/DL (7-18); BUN/CREATININE RATIO 14.8 (6.6-38.0); CALCIUM 8.4 MG/DL (8.5-10.1); CHLORIDE 103 MMOL/L (99-107); CREATININE 1.15 MG/DL (0.40-0.90); MAGNESIUM 1.9 MG/DL (1.5-2.4); POTASSIUM 4.7 MMOL/L (3.5-5.1); SODIUM 135 MMOL/L (135-145); TOTAL CARBON DIOXIDE 26.4 MMOL/L (24-32); eGFR 51 ML/MIN
[2018-05-29 08:11] LABS: ALBUMIN/GLOBULIN RATIO 0.4 (1.1-1.5); GLUCOSE 101 MG/DL (70-104); TOTAL PROTEIN 6.2 G/DL (6.4-8.2)
[2018-05-29] MEDS: spironolactone 50 MG tablet PO SCH (08:56)
[2018-05-29] MEDS: potassium Cl 20 mEq SR tablet PO SCH (08:56)
[2018-05-29] MEDS: lactulose 20gm/30ml cup PO SCH ×3 (08:56→23:31)
[2018-05-29] MEDS: thiamine 100mg tablet PO SCH (08:56)
[2018-05-29] MEDS: pantoprazole 40mg Tablet.DR PO SCH ×2 (08:56→20:35)
[2018-05-29] MEDS: traMADol 50MG tablet PO PRN (08:56)
[2018-05-29] MEDS: magnesium oxide 400mg tablet PO SCH (08:57)
[2018-05-29] MEDS: multivitamins, therapeutics tablet PO SCH (08:57)
[2018-05-29] MEDS: CefTRIAXone/D5W-Rocephin 1gm 50 ML IV SCH (09:03)
[2018-05-29 11:37] VITALS: BP 104/71
[2018-05-29 20:00] VITALS: BP 95/57
[2018-05-29] MEDS: lactobacillus rhamnosus 10,000 MMU CELLS/CAPSULE PO SCH (20:35)
[2018-05-29] MEDS: atenolol 25mg tablet PO SCH (21:00)
[2018-05-30 00:14] VITALS: BP 115/73
[2018-05-30 05:40] LABS: BASOPHILS % (AUTO) 0.6 % (0-1); EOSINOPHILS # (AUTO) 0.1 X10'3 (0-0.9); EOSINOPHILS % (AUTO) 2.3 % (0-6); HEMATOCRIT 30.5 % (35.0-45.0); HEMOGLOBIN 10.4 g/dl (12.0-16.0); LYMPHOCYTES # (AUTO) 1.4 X10'3 (1.1-4.8); LYMPHOCYTES % (AUTO) 26.6 % (21-51); MEAN CORPUSCULAR HEMOGLOBIN 37.9 PG (27.0-31.0); MEAN CORPUSCULAR VOLUME 111.7 FL (78-98); MEAN PLATELET VOLUME 9.4 FL (7.4-10.4); MONOCYTES # (AUTO) 0.6 X10'3 (0-0.9); MONOCYTES % (AUTO) 12.1 % (2-12); NEUTROPHILS # (AUTO) 3.1 X10'3 (1.8-7.7); NEUTROPHILS % (AUTO) 58.4 % (42-75); PLATELET COUNT 66 X10'3 (140-440); RED BLOOD COUNT 2.73 X10'6 (4.20-5.60); RED CELL DISTRIBUTION WIDTH 17.3 % (11.5-14.5); WHITE BLOOD COUNT 5.3 X10'3 (4.5-11.0)
[2018-05-30 06:19] LABS: ANISOCYTOSIS 1+; PLATELET ESTIMATE DECREASED
[2018-05-30 06:38] LABS: INR 1.8 INR
[2018-05-30 06:56] LABS: ALANINE AMINOTRANSFERASE 29 U/L (12-78); ALBUMIN 1.8 G/DL (3.4-5.0); ALKALINE PHOSPHATASE 112 IU/L (46-116); ANION GAP 9 (8-16); ASPARTATE AMINO TRANSFERASE 80 U/L (10-37); BILIRUBIN,TOTAL 5.2 MG/DL (0.1-1.0); BLOOD UREA NITROGEN 13 MG/DL (7-18); BUN/CREATININE RATIO 13.4 (6.6-38.0); CALCIUM 7.9 MG/DL (8.5-10.1); CHLORIDE 102 MMOL/L (99-107); CREATININE 0.97 MG/DL (0.40-0.90); MAGNESIUM 1.7 MG/DL (1.5-2.4); SODIUM 132 MMOL/L (135-145); TOTAL CARBON DIOXIDE 20.6 MMOL/L (24-32); eGFR 62 ML/MIN
[2018-05-30 06:57] LABS: ALBUMIN/GLOBULIN RATIO 0.4 (1.1-1.5); GLUCOSE 110 MG/DL (70-104); TOTAL PROTEIN 6.2 G/DL (6.4-8.2)
[2018-05-30 07:04] VITALS: BP 98/58
[2018-05-30] MEDS: sodium chloride 0.45% 1,000 ML IV SCH ×2 (07:09→08:56)
[2018-05-30] MEDS: K and/or MAG REPLACEMENT MC SCH (08:00)
[2018-05-30] MEDS: lactulose 20gm/30ml cup PO SCH (08:47)
[2018-05-30] MEDS: spironolactone 50 MG tablet PO SCH (08:47)
[2018-05-30] MEDS: thiamine 100mg tablet PO SCH (08:47)
[2018-05-30] MEDS: pantoprazole 40mg Tablet.DR PO SCH (08:47)
[2018-05-30] MEDS: CefTRIAXone/D5W-Rocephin 1gm 50 ML IV SCH (08:47)
[2018-05-30] MEDS: multivitamins, therapeutics tablet PO SCH (08:47)
[2018-05-30] MEDS: lactobacillus rhamnosus 10,000 MMU CELLS/CAPSULE PO SCH (08:47)
[2018-05-30] MEDS: magnesium oxide 400mg tablet PO SCH (08:47)
[2018-05-30] MEDS: furosemide 40mg tablet PO SCH (08:48)
[2018-05-30] MEDS: potassium Cl 20 mEq SR tablet PO SCH (08:48)
[2018-05-30 10:58] VITALS: BP 127/83
[2018-05-30] MEDS ORDERED: LACT10SO32 PO (12:50)
== END 2018-05-30 13:20 | disposition home or self-care (01) | DRG 279 ==
LOC: ER 09:30 → ED HOLD 13:25 → EDBEDREQ 14:35 → SUR 3N 15:34
PROVIDERS: ADMIT Internal Medicine; ATTEND Family Medicine
DX: K72.90 Hepatic failure, unspecified without coma (principal); E43 Unspecified severe protein-calorie malnutrition; N17.9 Acute kidney failure, unspecified; D69.59 Other secondary thrombocytopenia; E87.1 Hypo-osmolality and hyponatremia; E86.0 Dehydration; K70.31 Alcoholic cirrhosis of liver with ascites; G89.29 Other chronic pain; D64.9 Anemia, unspecified; F12.10 Cannabis abuse, uncomplicated; B19.20 Unspecified viral hepatitis C without hepatic coma; Z79.891 Long term (current) use of opiate analgesic; Z90.710 Acquired absence of both cervix and uterus; Z91.14 Patient's other noncompliance with medication regimen; Z91.19 Patient's noncompliance with other medical treatment and regimen; Z28.21 Immunization not carried out because of patient refusal; Z90.49 Acquired absence of other specified parts of digestive tract; Z68.28 Body mass index [BMI] 28.0-28.9, adult
CPT/HCPCS: 36415; 71045; 80053; 80305; 80320; 80329; 81001; 82140; 83605; 83735; 85025; 85610; 85730; 87040; 87070; 87088; 93005; 96360; 99285; G0378; J0696; J1644; Q2037

== ENCOUNTER 2018-06-11 13:49 | Inpatient (IN) | payer MEDICAID ==
[~2018-06-11] VITALS: Ht 160 cm; Wt 80.0 kg
[~2018-06-11 13:49] MED LIST changes: -CYCL-1 PO; +FOLI1TAB16 PO; -HYDR-3564 PO; +LACT10SO32 PO
[2018-06-11 14:56] LABS: BASOPHILS % (AUTO) 0.4 % (0-1); EOSINOPHILS # (AUTO) 0.1 X10'3 (0-0.9); EOSINOPHILS % (AUTO) 1.4 % (0-6); HEMATOCRIT 34.8 % (35.0-45.0); HEMOGLOBIN 11.6 g/dl (12.0-16.0); LYMPHOCYTES # (AUTO) 1.7 X10'3 (1.1-4.8); LYMPHOCYTES % (AUTO) 19.6 % (21-51); MEAN CORPUSCULAR HEMOGLOBIN 37.5 PG (27.0-31.0); MEAN CORPUSCULAR HGB CONC 33.3 % (33.0-36.5); MEAN CORPUSCULAR VOLUME 112.8 FL (78-98); MEAN PLATELET VOLUME 7.2 FL (7.4-10.4); MONOCYTES # (AUTO) 0.8 X10'3 (0-0.9); MONOCYTES % (AUTO) 9.6 % (2-12); NEUTROPHILS # (AUTO) 5.9 X10'3 (1.8-7.7); PLATELET COUNT 125 X10'3 (140-440); RED BLOOD COUNT 3.08 X10'6 (4.20-5.60); RED CELL DISTRIBUTION WIDTH 15.2 % (11.5-14.5); WHITE BLOOD COUNT 8.5 X10'3 (4.5-11.0)
[2018-06-11 14:57] LABS: URINE AMPHETAMINE SCREEN NEGATIVE (Neg); URINE BARBITUATE SCREEN NEGATIVE (Neg); URINE BENZODIAZEPINES SCREEN NEGATIVE (Neg); URINE CANNABINOID SCREEN POSITIVE (Neg); URINE COCAINE SCREEN NEGATIVE (Neg); URINE METHADONE SCREEN NEGATIVE (Neg); URINE OPIATE SCREEN POSITIVE (Neg); URINE PHENCYCLIDINE SCREEN NEGATIVE (Neg)
[2018-06-11 14:58] LABS: CLARITY,URINE CLEAR (Clear); COLOR,URINE YELLOW (Yellow); GLUCOSE, URINE NEGATIVE (Neg); KETONES,URINE NEGATIVE (Neg); LEUKOCYTE ESTERASE ,URINE SMALL (Neg); NITRITES, URINE NEGATIVE (Neg); OCCULT BLOOD,URINE SMALL (Neg); PROTEIN,URINE NEGATIVE (Neg)
[2018-06-11 15:03] LABS: UA COLLECTION TYPE VOIDED
[2018-06-11 15:04] LABS: BACTERIA,URINE 1+ /HPF (Neg); RBC,URINE 0-2 /HPF (0-2); SQUAMOUS EPITHELIAL CELL,UR FEW /LPF (FEW); WBC,URINE 0-4 /HPF (0-4)
[2018-06-11 15:05] LABS: HYALINE CASTS 0-3 /LPF (NEGATIVE)
[2018-06-11 15:11] LABS: INR 1.7 INR; PARTIAL THROMBOPLASTIN TIME 39 SECONDS (22-32); PROTHROMBIN TIME 16.9 SECONDS (9.0-12.0)
[2018-06-11 15:12] LABS: ALANINE AMINOTRANSFERASE 46 U/L (12-78); ALBUMIN 2.3 G/DL (3.4-5.0); ALKALINE PHOSPHATASE 150 IU/L (46-116); ANION GAP 8 (8-16); ASPARTATE AMINO TRANSFERASE 86 U/L (10-37); BILIRUBIN,TOTAL 8.6 MG/DL (0.1-1.0); BLOOD UREA NITROGEN 21 MG/DL (7-18); BUN/CREATININE RATIO 12.7 (6.6-38.0); CALCIUM 8.9 MG/DL (8.5-10.1); CHLORIDE 100 MMOL/L (99-107); CREATININE 1.65 MG/DL (0.40-0.90); POTASSIUM 4.4 MMOL/L (3.5-5.1); SODIUM 136 MMOL/L (135-145); TOTAL CARBON DIOXIDE 28.3 MMOL/L (24-32); eGFR 33 ML/MIN
[2018-06-11 15:14] LABS: PLATELET ESTIMATE DECREASED
[2018-06-11 15:17] LABS: ALBUMIN/GLOBULIN RATIO 0.5 (1.1-1.5); GLUCOSE 101 MG/DL (70-104); TOTAL PROTEIN 7.4 G/DL (6.4-8.2)
[2018-06-11] MEDS ORDERED: lactulose 20gm/30ml cup PO ONE (15:25)
[2018-06-11] MEDS ORDERED: potassium Cl 20 mEq SR tablet PO PRN ×2 (16:45)
[2018-06-11] MEDS ORDERED: magnesium hydroxide 30ml (MOM) UD suspension PO PRN (16:45)
[2018-06-11] MEDS ORDERED: acetaminophen 325mg tablet PO PRN (16:45)
[2018-06-11] MEDS ORDERED: magnesium 4gm in 100ml NS 100 ML IV PRN (16:45)
[2018-06-11] MEDS ORDERED: potassium Cl 40MEQ/NS 500ml 500 ML IV PRN ×2 (16:45)
[2018-06-11] MEDS ORDERED: mag hydrox/Alum hydrox/simeth 30ml oral suspension PO PRN (16:45)
[2018-06-11] MEDS ORDERED: magnesium 1gm/100ml D5W IVPB 100 ML IV PRN (16:45)
[2018-06-11] MEDS ORDERED: morphine 2 MG/ML inj. syringe IV PRN (16:45)
[2018-06-11] MEDS: folic acid 1mg tablet PO SCH (19:36)
[2018-06-11] MEDS: lactulose 20gm/30ml cup PO SCH ×2 (19:37→20:00)
[2018-06-11 19:45] VITALS: BP 98/58
[2018-06-11] MEDS: normal saline 1000ml 1,000 ML IV SCH (20:12)
[2018-06-11] MEDS: pantoprazole 40mg Tablet.DR PO SCH (20:16)
[2018-06-11] MEDS: rifaximin 550mg tablet PO SCH (20:16)
[2018-06-11] MEDS ORDERED: haloperidol lactate 5mg/ml inj IM ONE (23:40)
[2018-06-12] VITALS: BP 96/57
[2018-06-12] MEDS ORDERED: lactulose 20gm/30ml cup PO SCH
[2018-06-12] MEDS: lactulose 20gm/30ml cup PO SCH ×4 (02:09→19:14)
[2018-06-12] MEDS: normal saline 1000ml 1,000 ML IV SCH ×3 (02:42→14:04)
[2018-06-12 05:20] LABS: BASOPHILS % (AUTO) 0.4 % (0-1); EOSINOPHILS # (AUTO) 0.1 X10'3 (0-0.9); EOSINOPHILS % (AUTO) 1.4 % (0-6); HEMATOCRIT 29.5 % (35.0-45.0); HEMOGLOBIN 9.8 g/dl (12.0-16.0); LYMPHOCYTES # (AUTO) 1.4 X10'3 (1.1-4.8); LYMPHOCYTES % (AUTO) 15.3 % (21-51); MEAN CORPUSCULAR HEMOGLOBIN 37.5 PG (27.0-31.0); MEAN CORPUSCULAR HGB CONC 33.1 % (33.0-36.5); MEAN CORPUSCULAR VOLUME 113.4 FL (78-98); MEAN PLATELET VOLUME 7.4 FL (7.4-10.4); MONOCYTES # (AUTO) 1.1 X10'3 (0-0.9); MONOCYTES % (AUTO) 11.8 % (2-12); NEUTROPHILS # (AUTO) 6.6 X10'3 (1.8-7.7); NEUTROPHILS % (AUTO) 71.1 % (42-75); PLATELET COUNT 95 X10'3 (140-440); RED CELL DISTRIBUTION WIDTH 15.6 % (11.5-14.5); WHITE BLOOD COUNT 9.2 X10'3 (4.5-11.0)
[2018-06-12 05:43] LABS: ALANINE AMINOTRANSFERASE 37 U/L (12-78); ALBUMIN 1.8 G/DL (3.4-5.0); ALKALINE PHOSPHATASE 124 IU/L (46-116); ANION GAP 10 (8-16); ASPARTATE AMINO TRANSFERASE 69 U/L (10-37); BILIRUBIN,TOTAL 7.6 MG/DL (0.1-1.0); BLOOD UREA NITROGEN 21 MG/DL (7-18); BUN/CREATININE RATIO 13.5 (6.6-38.0); CALCIUM 8.4 MG/DL (8.5-10.1); CHLORIDE 103 MMOL/L (99-107); CREATININE 1.55 MG/DL (0.40-0.90); MAGNESIUM 1.8 MG/DL (1.5-2.4); POTASSIUM 4.1 MMOL/L (3.5-5.1); SODIUM 138 MMOL/L (135-145); TOTAL CARBON DIOXIDE 25.1 MMOL/L (24-32); eGFR 36 ML/MIN
[2018-06-12 05:47] LABS: GLUCOSE 114 MG/DL (70-104)
[2018-06-12 05:48] LABS: ALBUMIN/GLOBULIN RATIO 0.4 (1.1-1.5); TOTAL PROTEIN 6.1 G/DL (6.4-8.2)
[2018-06-12 06:29] LABS: PLATELET ESTIMATE DECREASED
[2018-06-12 06:30] LABS: ANISOCYTOSIS 1+
[2018-06-12 06:37] VITALS: BP 118/64
[2018-06-12] MEDS: folic acid 1mg tablet PO SCH (08:00)
[2018-06-12] MEDS: K and/or MAG REPLACEMENT MC SCH (08:00)
[2018-06-12] MEDS: pantoprazole 40mg Tablet.DR PO SCH ×2 (08:25→19:14)
[2018-06-12] MEDS: multivitamins, therapeutics tablet PO SCH (08:26)
[2018-06-12] MEDS: furosemide 40mg tablet PO SCH (08:26)
[2018-06-12] MEDS: potassium Cl 20 mEq SR tablet PO SCH (08:26)
[2018-06-12] MEDS: magnesium oxide 400mg tablet PO SCH (08:26)
[2018-06-12] MEDS: spironolactone 50 MG tablet PO SCH (08:27)
[2018-06-12] MEDS: thiamine 100mg tablet PO SCH (08:27)
[2018-06-12] MEDS: rifaximin 550mg tablet PO SCH ×2 (08:27→19:14)
[2018-06-12] MEDS ORDERED: LORazepam 2 mg/ml vial IV ONE (09:30)
[2018-06-12 11:18] VITALS: BP 105/64
[2018-06-12 18:00] VITALS: BP 114/73
[2018-06-13] VITALS: BP 133/84
[2018-06-13] MEDS: haloperidol lactate 5mg/ml inj IM PRN (02:03)
[2018-06-13] MEDS: lactulose 20gm/30ml cup PO SCH ×4 (02:04→19:17)
[2018-06-13 08:00] VITALS: BP 106/57
[2018-06-13] MEDS: K and/or MAG REPLACEMENT MC SCH (08:00)
[2018-06-13] MEDS: spironolactone 50 MG tablet PO SCH (09:21)
[2018-06-13] MEDS: thiamine 100mg tablet PO SCH (09:21)
[2018-06-13] MEDS: rifaximin 550mg tablet PO SCH ×2 (09:21→19:17)
[2018-06-13] MEDS: potassium Cl 20 mEq SR tablet PO SCH (09:21)
[2018-06-13] MEDS: furosemide 40mg tablet PO SCH (09:21)
[2018-06-13] MEDS: folic acid 1mg tablet PO SCH (09:22)
[2018-06-13] MEDS: multivitamins, therapeutics tablet PO SCH (09:22)
[2018-06-13] MEDS: pantoprazole 40mg Tablet.DR PO SCH ×2 (09:22→19:17)
[2018-06-13] MEDS: magnesium oxide 400mg tablet PO SCH (09:22)
[2018-06-13 09:58] LABS: BASOPHILS % (AUTO) 0.2 % (0-1); EOSINOPHILS # (AUTO) 0.1 X10'3 (0-0.9); EOSINOPHILS % (AUTO) 1.2 % (0-6); HEMATOCRIT 30.5 % (35.0-45.0); HEMOGLOBIN 10.1 g/dl (12.0-16.0); LYMPHOCYTES # (AUTO) 1.4 X10'3 (1.1-4.8); LYMPHOCYTES % (AUTO) 14.4 % (21-51); MEAN CORPUSCULAR HEMOGLOBIN 37.5 PG (27.0-31.0); MEAN CORPUSCULAR VOLUME 113.7 FL (78-98); MEAN PLATELET VOLUME 7.8 FL (7.4-10.4); MONOCYTES # (AUTO) 1.1 X10'3 (0-0.9); MONOCYTES % (AUTO) 11.2 % (2-12); PLATELET COUNT 114 X10'3 (140-440); RED BLOOD COUNT 2.68 X10'6 (4.20-5.60); RED CELL DISTRIBUTION WIDTH 15.7 % (11.5-14.5); WHITE BLOOD COUNT 9.6 X10'3 (4.5-11.0)
[2018-06-13 10:13] LABS: ALANINE AMINOTRANSFERASE 42 U/L (12-78); ALKALINE PHOSPHATASE 134 IU/L (46-116); ANION GAP 9 (8-16); ASPARTATE AMINO TRANSFERASE 86 U/L (10-37); BILIRUBIN,TOTAL 7.8 MG/DL (0.1-1.0); BLOOD UREA NITROGEN 19 MG/DL (7-18); BUN/CREATININE RATIO 14.1 (6.6-38.0); CALCIUM 8.3 MG/DL (8.5-10.1); CHLORIDE 102 MMOL/L (99-107); CREATININE 1.35 MG/DL (0.40-0.90); MAGNESIUM 1.8 MG/DL (1.5-2.4); SODIUM 138 MMOL/L (135-145); TOTAL CARBON DIOXIDE 27.2 MMOL/L (24-32); eGFR 42 ML/MIN
[2018-06-13 10:14] LABS: ALBUMIN/GLOBULIN RATIO 0.4 (1.1-1.5); GLUCOSE 124 MG/DL (70-104); POTASSIUM 4.3 MMOL/L (3.5-5.1); TOTAL PROTEIN 6.7 G/DL (6.4-8.2)
[2018-06-13 12:00] VITALS: BP 112/65
[2018-06-13] MEDS ORDERED: LORazepam 2 mg/ml vial IV ONE (12:45)
[2018-06-13] MEDS: lactobacillus rhamnosus 10,000 MMU CELLS/CAPSULE PO SCH (19:17)
[2018-06-13 20:00] VITALS: BP 125/74
[2018-06-14] VITALS: BP 125/72
[2018-06-14] MEDS: morphine 2 MG/ML inj. syringe IV PRN ×2 (00:39→15:03)
[2018-06-14] MEDS: haloperidol lactate 5mg/ml inj IM PRN (00:39)
[2018-06-14] MEDS: lactulose 20gm/30ml cup PO SCH ×3 (02:00→15:02)
[2018-06-14] MEDS: K and/or MAG REPLACEMENT MC SCH (08:00)
[2018-06-14] MEDS: thiamine 100mg tablet PO SCH (08:40)
[2018-06-14] MEDS: spironolactone 50 MG tablet PO SCH (08:40)
[2018-06-14] MEDS: rifaximin 550mg tablet PO SCH (08:40)
[2018-06-14] MEDS: multivitamins, therapeutics tablet PO SCH (08:40)
[2018-06-14] MEDS: pantoprazole 40mg Tablet.DR PO SCH (08:40)
[2018-06-14] MEDS: potassium Cl 20 mEq SR tablet PO SCH (08:41)
[2018-06-14] MEDS: folic acid 1mg tablet PO SCH (08:41)
[2018-06-14] MEDS: magnesium oxide 400mg tablet PO SCH (08:41)
[2018-06-14] MEDS: furosemide 40mg tablet PO SCH (08:41)
[2018-06-14] MEDS: lactobacillus rhamnosus 10,000 MMU CELLS/CAPSULE PO SCH (08:41)
[2018-06-14 12:49] LABS: ALANINE AMINOTRANSFERASE 41 U/L (12-78); ALBUMIN 1.9 G/DL (3.4-5.0); ALKALINE PHOSPHATASE 129 IU/L (46-116); ANION GAP 10 (8-16); ASPARTATE AMINO TRANSFERASE 72 U/L (10-37); BILIRUBIN,TOTAL 7.2 MG/DL (0.1-1.0); BLOOD UREA NITROGEN 21 MG/DL (7-18); CALCIUM 8.4 MG/DL (8.5-10.1); CHLORIDE 101 MMOL/L (99-107); CREATININE 1.31 MG/DL (0.40-0.90); POTASSIUM 4.2 MMOL/L (3.5-5.1); SODIUM 134 MMOL/L (135-145); TOTAL CARBON DIOXIDE 23.2 MMOL/L (24-32); eGFR 44 ML/MIN
[2018-06-14 12:54] LABS: ALBUMIN/GLOBULIN RATIO 0.4 (1.1-1.5); GLUCOSE 123 MG/DL (70-104); TOTAL PROTEIN 6.6 G/DL (6.4-8.2)
[2018-06-14 14:47] LABS: BASOPHILS % (AUTO) 0.3 % (0-1); EOSINOPHILS # (AUTO) 0.2 X10'3 (0-0.9); EOSINOPHILS % (AUTO) 1.9 % (0-6); HEMOGLOBIN 11.1 g/dl (12.0-16.0); LYMPHOCYTES # (AUTO) 1.7 X10'3 (1.1-4.8); LYMPHOCYTES % (AUTO) 17.2 % (21-51); MEAN CORPUSCULAR HEMOGLOBIN 37.4 PG (27.0-31.0); MEAN CORPUSCULAR HGB CONC 32.7 % (33.0-36.5); MEAN CORPUSCULAR VOLUME 114.4 FL (78-98); MEAN PLATELET VOLUME 7.6 FL (7.4-10.4); MONOCYTES # (AUTO) 1.6 X10'3 (0-0.9); MONOCYTES % (AUTO) 16.2 % (2-12); NEUTROPHILS # (AUTO) 6.3 X10'3 (1.8-7.7); NEUTROPHILS % (AUTO) 64.4 % (42-75); PLATELET COUNT 113 X10'3 (140-440); RED BLOOD COUNT 2.97 X10'6 (4.20-5.60); RED CELL DISTRIBUTION WIDTH 15.5 % (11.5-14.5); WHITE BLOOD COUNT 9.8 X10'3 (4.5-11.0)
[2018-06-14 15:34] LABS: PLATELET ESTIMATE DECREASED
[2018-06-14 15:35] LABS: MICROCYTOSIS 1+
[2018-06-14 19:30] VITALS: BP 123/63
[2018-06-15] VITALS: BP 112/64
[2018-06-15] MEDS: pantoprazole 40mg Tablet.DR PO SCH ×3 (00:35→19:12)
[2018-06-15] MEDS: lactobacillus rhamnosus 10,000 MMU CELLS/CAPSULE PO SCH ×3 (00:35→19:12)
[2018-06-15] MEDS: lactulose 20gm/30ml cup PO SCH ×5 (00:35→19:12)
[2018-06-15] MEDS: rifaximin 550mg tablet PO SCH ×3 (00:36→19:12)
[2018-06-15 05:53] LABS: BASOPHILS % (AUTO) 0.3 % (0-1); EOSINOPHILS # (AUTO) 0.3 X10'3 (0-0.9); HEMATOCRIT 27.1 % (35.0-45.0); LYMPHOCYTES # (AUTO) 1.5 X10'3 (1.1-4.8); LYMPHOCYTES % (AUTO) 20.6 % (21-51); MEAN CORPUSCULAR HEMOGLOBIN 37.5 PG (27.0-31.0); MEAN CORPUSCULAR HGB CONC 33.2 % (33.0-36.5); MEAN CORPUSCULAR VOLUME 112.9 FL (78-98); MEAN PLATELET VOLUME 7.5 FL (7.4-10.4); MONOCYTES # (AUTO) 1.1 X10'3 (0-0.9); MONOCYTES % (AUTO) 15.2 % (2-12); NEUTROPHILS # (AUTO) 4.4 X10'3 (1.8-7.7); NEUTROPHILS % (AUTO) 59.9 % (42-75); PLATELET COUNT 89 X10'3 (140-440); RED CELL DISTRIBUTION WIDTH 15.3 % (11.5-14.5); WHITE BLOOD COUNT 7.4 X10'3 (4.5-11.0)
[2018-06-15 06:13] LABS: ALANINE AMINOTRANSFERASE 37 U/L (12-78); ALBUMIN 1.7 G/DL (3.4-5.0); ALKALINE PHOSPHATASE 116 IU/L (46-116); ANION GAP 7 (8-16); ASPARTATE AMINO TRANSFERASE 59 U/L (10-37); BLOOD UREA NITROGEN 19 MG/DL (7-18); BUN/CREATININE RATIO 16.1 (6.6-38.0); CALCIUM 8.2 MG/DL (8.5-10.1); CHLORIDE 101 MMOL/L (99-107); CREATININE 1.18 MG/DL (0.40-0.90); MAGNESIUM 1.9 MG/DL (1.5-2.4); POTASSIUM 4.2 MMOL/L (3.5-5.1); SODIUM 135 MMOL/L (135-145); TOTAL CARBON DIOXIDE 27.3 MMOL/L (24-32); eGFR 49 ML/MIN
[2018-06-15 06:24] LABS: ALBUMIN/GLOBULIN RATIO 0.4 (1.1-1.5); GLUCOSE 108 MG/DL (70-104); TOTAL PROTEIN 5.9 G/DL (6.4-8.2)
[2018-06-15] MEDS: K and/or MAG REPLACEMENT MC SCH (08:00)
[2018-06-15] MEDS: multivitamins, therapeutics tablet PO SCH (08:35)
[2018-06-15] MEDS: thiamine 100mg tablet PO SCH (08:35)
[2018-06-15] MEDS: potassium Cl 20 mEq SR tablet PO SCH (08:35)
[2018-06-15] MEDS: folic acid 1mg tablet PO SCH (08:35)
[2018-06-15] MEDS: spironolactone 50 MG tablet PO SCH (08:35)
[2018-06-15] MEDS: magnesium oxide 400mg tablet PO SCH (08:35)
[2018-06-15] MEDS: furosemide 40mg tablet PO SCH (08:35)
[2018-06-15] MEDS: morphine 2 MG/ML inj. syringe IV PRN ×2 (08:42→19:25)
[2018-06-15 08:56] VITALS: BP 113/59
[2018-06-15 09:59] LABS: PLATELET ESTIMATE DECREASED; TOTAL CELLS COUNTED 100
[2018-06-15 10:00] LABS: SMUDGE CELLS 2+
[2018-06-15 11:00] VITALS: BP 121/74
[2018-06-15 19:00] VITALS: BP 124/78
[2018-06-16] VITALS: BP 119/76
[2018-06-16] MEDS: lactulose 20gm/30ml cup PO SCH ×4 (01:46→19:50)
[2018-06-16 02:32] LABS: ALANINE AMINOTRANSFERASE 43 U/L (12-78); ALBUMIN 1.9 G/DL (3.4-5.0); ALKALINE PHOSPHATASE 144 IU/L (46-116); ANION GAP 7 (8-16); ASPARTATE AMINO TRANSFERASE 75 U/L (10-37); BILIRUBIN,TOTAL 5.8 MG/DL (0.1-1.0); BLOOD UREA NITROGEN 14 MG/DL (7-18); BUN/CREATININE RATIO 12.5 (6.6-38.0); CALCIUM 8.2 MG/DL (8.5-10.1); CHLORIDE 97 MMOL/L (99-107); CREATININE 1.12 MG/DL (0.40-0.90); MAGNESIUM 1.7 MG/DL (1.5-2.4); POTASSIUM 4.2 MMOL/L (3.5-5.1); SODIUM 131 MMOL/L (135-145); TOTAL CARBON DIOXIDE 26.6 MMOL/L (24-32); eGFR 52 ML/MIN
[2018-06-16 02:40] LABS: ALBUMIN/GLOBULIN RATIO 0.4 (1.1-1.5); GLUCOSE 107 MG/DL (70-104); TOTAL PROTEIN 6.7 G/DL (6.4-8.2)
[2018-06-16 03:03] LABS: BASOPHILS # (AUTO) 0.1 X10'3 (0-0.2); BASOPHILS % (AUTO) 0.9 % (0-1); EOSINOPHILS # (AUTO) 0.2 X10'3 (0-0.9); EOSINOPHILS % (AUTO) 2.7 % (0-6); HEMATOCRIT 29.4 % (35.0-45.0); HEMOGLOBIN 9.8 g/dl (12.0-16.0); LYMPHOCYTES # (AUTO) 1.6 X10'3 (1.1-4.8); LYMPHOCYTES % (AUTO) 20.8 % (21-51); MEAN CORPUSCULAR HEMOGLOBIN 37.3 PG (27.0-31.0); MEAN CORPUSCULAR HGB CONC 33.3 % (33.0-36.5); MEAN CORPUSCULAR VOLUME 112.1 FL (78-98); MEAN PLATELET VOLUME 8.2 FL (7.4-10.4); MONOCYTES # (AUTO) 0.9 X10'3 (0-0.9); MONOCYTES % (AUTO) 11.8 % (2-12); NEUTROPHILS # (AUTO) 4.9 X10'3 (1.8-7.7); NEUTROPHILS % (AUTO) 63.8 % (42-75); PLATELET COUNT 97 X10'3 (140-440); RED BLOOD COUNT 2.63 X10'6 (4.20-5.60); RED CELL DISTRIBUTION WIDTH 15.1 % (11.5-14.5); WHITE BLOOD COUNT 7.7 X10'3 (4.5-11.0)
[2018-06-16] MEDS: morphine 2 MG/ML inj. syringe IV PRN ×2 (03:52→20:05)
[2018-06-16 08:00] VITALS: BP 110/68
[2018-06-16] MEDS: K and/or MAG REPLACEMENT MC SCH (08:00)
[2018-06-16] MEDS: lactobacillus rhamnosus 10,000 MMU CELLS/CAPSULE PO SCH ×2 (08:21→20:00)
[2018-06-16] MEDS: magnesium oxide 400mg tablet PO SCH (08:21)
[2018-06-16] MEDS: furosemide 40mg tablet PO SCH (08:21)
[2018-06-16] MEDS: spironolactone 50 MG tablet PO SCH (08:21)
[2018-06-16] MEDS: thiamine 100mg tablet PO SCH (08:21)
[2018-06-16] MEDS: folic acid 1mg tablet PO SCH (08:22)
[2018-06-16] MEDS: pantoprazole 40mg Tablet.DR PO SCH ×2 (08:22→20:00)
[2018-06-16] MEDS: multivitamins, therapeutics tablet PO SCH (08:22)
[2018-06-16] MEDS: rifaximin 550mg tablet PO SCH ×2 (08:22→20:00)
[2018-06-16] MEDS: potassium Cl 20 mEq SR tablet PO SCH (08:22)
[2018-06-16 11:00] VITALS: BP 120/85
[2018-06-16 12:00] VITALS: BP 120/85
[2018-06-16] MEDS: CefTRIAXone/D5W-Rocephin 1gm 50 ML IV SCH (16:47)
[2018-06-16 18:00] VITALS: BP 118/79
[2018-06-16] MEDS: ondansetron/PF 4mg/2ml inj IV PRN (20:05)
[2018-06-16] MEDS: haloperidol lactate 5mg/ml inj IM PRN (20:12)
[2018-06-17] VITALS: BP 130/75
[2018-06-17] MEDS ORDERED: haloperidol lactate 5mg/ml inj IM ONE (00:25)
[2018-06-17] MEDS: lactulose 20gm/30ml cup PO SCH ×4 (02:07→19:34)
[2018-06-17 07:08] VITALS: BP 140/75
[2018-06-17] MEDS: CefTRIAXone/D5W-Rocephin 1gm 50 ML IV SCH (07:48)
[2018-06-17] MEDS: morphine 2 MG/ML inj. syringe IV PRN ×2 (07:48→19:29)
[2018-06-17] MEDS: K and/or MAG REPLACEMENT MC SCH (07:58)
[2018-06-17] MEDS: furosemide 40mg tablet PO SCH (07:59)
[2018-06-17] MEDS: rifaximin 550mg tablet PO SCH ×2 (07:59→19:29)
[2018-06-17] MEDS: spironolactone 50 MG tablet PO SCH (07:59)
[2018-06-17] MEDS: potassium Cl 20 mEq SR tablet PO SCH (08:00)
[2018-06-17] MEDS: lactobacillus rhamnosus 10,000 MMU CELLS/CAPSULE PO SCH ×2 (08:00→20:00)
[2018-06-17] MEDS: folic acid 1mg tablet PO SCH (08:03)
[2018-06-17] MEDS: thiamine 100mg tablet PO SCH (08:03)
[2018-06-17] MEDS: pantoprazole 40mg Tablet.DR PO SCH ×2 (08:03→19:34)
[2018-06-17] MEDS: multivitamins, therapeutics tablet PO SCH (08:04)
[2018-06-17] MEDS: magnesium oxide 400mg tablet PO SCH (08:04)
[2018-06-17 08:50] LABS: ALANINE AMINOTRANSFERASE 44 U/L (12-78); ALBUMIN 1.9 G/DL (3.4-5.0); ALKALINE PHOSPHATASE 132 IU/L (46-116); ANION GAP 9 (8-16); ASPARTATE AMINO TRANSFERASE 69 U/L (10-37); BILIRUBIN,TOTAL 6.2 MG/DL (0.1-1.0); BLOOD UREA NITROGEN 14 MG/DL (7-18); BUN/CREATININE RATIO 11.8 (6.6-38.0); CALCIUM 8.2 MG/DL (8.5-10.1); CHLORIDE 95 MMOL/L (99-107); CREATININE 1.19 MG/DL (0.40-0.90); MAGNESIUM 1.9 MG/DL (1.5-2.4); POTASSIUM 4.2 MMOL/L (3.5-5.1); SODIUM 130 MMOL/L (135-145); eGFR 49 ML/MIN
[2018-06-17 08:53] LABS: ALBUMIN/GLOBULIN RATIO 0.4 (1.1-1.5); GLUCOSE 137 MG/DL (70-104); TOTAL PROTEIN 6.5 G/DL (6.4-8.2)
[2018-06-17 12:20] VITALS: BP 125/70
[2018-06-17] MEDS: haloperidol lactate 5mg/ml inj IM PRN (17:04)
[2018-06-17 19:00] VITALS: BP 115/58
[2018-06-17] MEDS: ondansetron/PF 4mg/2ml inj IV PRN (21:09)
[2018-06-18] VITALS: BP 119/65
[2018-06-18] MEDS: lactulose 20gm/30ml cup PO SCH ×4 (02:05→19:17)
[2018-06-18 06:51] LABS: ALANINE AMINOTRANSFERASE 41 U/L (12-78); ALBUMIN 1.9 G/DL (3.4-5.0); ALKALINE PHOSPHATASE 145 IU/L (46-116); ANION GAP 8 (8-16); ASPARTATE AMINO TRANSFERASE 65 U/L (10-37); BLOOD UREA NITROGEN 14 MG/DL (7-18); BUN/CREATININE RATIO 10.7 (6.6-38.0); CALCIUM 8.3 MG/DL (8.5-10.1); CHLORIDE 93 MMOL/L (99-107); CREATININE 1.31 MG/DL (0.40-0.90); MAGNESIUM 1.8 MG/DL (1.5-2.4); POTASSIUM 4.2 MMOL/L (3.5-5.1); SODIUM 127 MMOL/L (135-145); TOTAL CARBON DIOXIDE 25.8 MMOL/L (24-32); eGFR 44 ML/MIN
[2018-06-18 07:03] LABS: GLUCOSE 116 MG/DL (70-104)
[2018-06-18 07:08] LABS: ALBUMIN/GLOBULIN RATIO 0.4 (1.1-1.5); TOTAL PROTEIN 6.5 G/DL (6.4-8.2)
[2018-06-18] MEDS: morphine 2 MG/ML inj. syringe IV PRN ×3 (07:42→19:26)
[2018-06-18 08:00] VITALS: BP 103/81
[2018-06-18] MEDS: K and/or MAG REPLACEMENT MC SCH (08:00)
[2018-06-18] MEDS: spironolactone 50 MG tablet PO SCH (09:46)
[2018-06-18] MEDS: CefTRIAXone/D5W-Rocephin 1gm 50 ML IV SCH (09:46)
[2018-06-18] MEDS: lactobacillus rhamnosus 10,000 MMU CELLS/CAPSULE PO SCH ×2 (09:47→19:17)
[2018-06-18] MEDS: magnesium oxide 400mg tablet PO SCH (09:47)
[2018-06-18] MEDS: multivitamins, therapeutics tablet PO SCH (09:47)
[2018-06-18] MEDS: folic acid 1mg tablet PO SCH (09:47)
[2018-06-18] MEDS: furosemide 40mg tablet PO SCH (09:47)
[2018-06-18] MEDS: pantoprazole 40mg Tablet.DR PO SCH ×2 (09:47→19:18)
[2018-06-18] MEDS: potassium Cl 20 mEq SR tablet PO SCH (09:47)
[2018-06-18] MEDS: thiamine 100mg tablet PO SCH (09:48)
[2018-06-18] MEDS: rifaximin 550mg tablet PO SCH ×2 (09:48→19:18)
[2018-06-18 12:13] VITALS: BP 122/82
[2018-06-18 20:00] VITALS: BP 118/73
[2018-06-19] VITALS: BP 103/77
[2018-06-19] MEDS: morphine 2 MG/ML inj. syringe IV PRN ×5 (01:34→20:38)
[2018-06-19] MEDS: lactulose 20gm/30ml cup PO SCH ×4 (01:46→20:38)
[2018-06-19 07:16] VITALS: BP 127/72
[2018-06-19] MEDS: K and/or MAG REPLACEMENT MC SCH (07:18)
[2018-06-19] MEDS: CefTRIAXone/D5W-Rocephin 1gm 50 ML IV SCH (07:19)
[2018-06-19] MEDS: spironolactone 50 MG tablet PO SCH (07:19)
[2018-06-19] MEDS: rifaximin 550mg tablet PO SCH ×2 (07:20→20:38)
[2018-06-19] MEDS: magnesium oxide 400mg tablet PO SCH (07:20)
[2018-06-19] MEDS: folic acid 1mg tablet PO SCH (07:20)
[2018-06-19] MEDS: pantoprazole 40mg Tablet.DR PO SCH ×2 (07:20→20:38)
[2018-06-19] MEDS: lactobacillus rhamnosus 10,000 MMU CELLS/CAPSULE PO SCH ×2 (07:20→20:38)
[2018-06-19] MEDS: furosemide 40mg tablet PO SCH (07:20)
[2018-06-19] MEDS: multivitamins, therapeutics tablet PO SCH (07:20)
[2018-06-19] MEDS: potassium Cl 20 mEq SR tablet PO SCH (07:20)
[2018-06-19] MEDS: thiamine 100mg tablet PO SCH (07:20)
[2018-06-19 08:18] LABS: ALANINE AMINOTRANSFERASE 43 U/L (12-78); ALBUMIN 2.1 G/DL (3.4-5.0); ALKALINE PHOSPHATASE 152 IU/L (46-116); ANION GAP 9 (8-16); ASPARTATE AMINO TRANSFERASE 71 U/L (10-37); BLOOD UREA NITROGEN 15 MG/DL (7-18); BUN/CREATININE RATIO 11.6 (6.6-38.0); CALCIUM 8.6 MG/DL (8.5-10.1); CHLORIDE 91 MMOL/L (99-107); CREATININE 1.29 MG/DL (0.40-0.90); POTASSIUM 4.6 MMOL/L (3.5-5.1); SODIUM 126 MMOL/L (135-145); TOTAL CARBON DIOXIDE 25.7 MMOL/L (24-32); eGFR 44 ML/MIN
[2018-06-19 08:19] LABS: ALBUMIN/GLOBULIN RATIO 0.4 (1.1-1.5); GLUCOSE 113 MG/DL (70-104); TOTAL PROTEIN 7.2 G/DL (6.4-8.2)
[2018-06-19 12:00] VITALS: BP 112/76
[2018-06-19] MEDS: hydrOXYzine 10 MG tablet PO PRN ×2 (14:23→21:00)
[2018-06-19 20:00] VITALS: BP 105/74
[2018-06-20] VITALS: BP 128/78
[2018-06-20] MEDS: morphine 2 MG/ML inj. syringe IV PRN ×2 (00:18→04:45)
[2018-06-20] MEDS: lactulose 20gm/30ml cup PO SCH ×4 (01:48→21:44)
[2018-06-20] MEDS: hydrOXYzine 10 MG tablet PO PRN (04:45)
[2018-06-20 06:00] LABS: ALANINE AMINOTRANSFERASE 39 U/L (12-78); ALBUMIN 1.9 G/DL (3.4-5.0); ALBUMIN/GLOBULIN RATIO 0.4 (1.1-1.5); ALKALINE PHOSPHATASE 146 IU/L (46-116); ANION GAP 9 (8-16); ASPARTATE AMINO TRANSFERASE 74 U/L (10-37); BILIRUBIN,TOTAL 6.2 MG/DL (0.1-1.0); BLOOD UREA NITROGEN 17 MG/DL (7-18); BUN/CREATININE RATIO 12.1 (6.6-38.0); CALCIUM 8.4 MG/DL (8.5-10.1); CHLORIDE 93 MMOL/L (99-107); CREATININE 1.41 MG/DL (0.40-0.90); GLUCOSE 123 MG/DL (70-104); POTASSIUM 5.5 MMOL/L (3.5-5.1); SODIUM 126 MMOL/L (135-145); TOTAL CARBON DIOXIDE 23.9 MMOL/L (24-32); TOTAL PROTEIN 6.8 G/DL (6.4-8.2); eGFR 40 ML/MIN
[2018-06-20 08:00] VITALS: BP 116/79
[2018-06-20] MEDS: K and/or MAG REPLACEMENT MC SCH (08:00)
[2018-06-20] MEDS: potassium Cl 20 mEq SR tablet PO SCH (08:00)
[2018-06-20] MEDS ORDERED: LIDOcaine 1%/PF 5ML 10 MG/ML VIAL ONE (09:09)
[2018-06-20] MEDS: pantoprazole 40mg Tablet.DR PO SCH ×2 (09:45→21:45)
[2018-06-20] MEDS: magnesium oxide 400mg tablet PO SCH (09:45)
[2018-06-20] MEDS: folic acid 1mg tablet PO SCH (09:45)
[2018-06-20] MEDS: multivitamins, therapeutics tablet PO SCH (09:45)
[2018-06-20] MEDS: spironolactone 50 MG tablet PO SCH (09:45)
[2018-06-20] MEDS: thiamine 100mg tablet PO SCH (09:45)
[2018-06-20] MEDS: furosemide 40mg tablet PO SCH (09:45)
[2018-06-20] MEDS: lactobacillus rhamnosus 10,000 MMU CELLS/CAPSULE PO SCH ×2 (09:45→21:45)
[2018-06-20] MEDS: rifaximin 550mg tablet PO SCH ×2 (09:49→22:03)
[2018-06-20 10:09] VITALS: BP 125/82
[2018-06-20 10:24] VITALS: BP 119/81
[2018-06-20 11:18] LABS: BASOPHILS # (AUTO) 0.1 X10'3 (0-0.2); BASOPHILS % (AUTO) 1.5 % (0-1); EOSINOPHILS # (AUTO) 0.1 X10'3 (0-0.9); EOSINOPHILS % (AUTO) 1.2 % (0-6); HEMATOCRIT 33.2 % (35.0-45.0); HEMOGLOBIN 11.1 g/dl (12.0-16.0); LYMPHOCYTES # (AUTO) 0.8 X10'3 (1.1-4.8); LYMPHOCYTES % (AUTO) 10.3 % (21-51); MEAN CORPUSCULAR HEMOGLOBIN 37.1 PG (27.0-31.0); MEAN CORPUSCULAR HGB CONC 33.4 % (33.0-36.5); MEAN CORPUSCULAR VOLUME 111.3 FL (78-98); MEAN PLATELET VOLUME 8.1 FL (7.4-10.4); MONOCYTES # (AUTO) 1.5 X10'3 (0-0.9); MONOCYTES % (AUTO) 18.7 % (2-12); NEUTROPHILS # (AUTO) 5.4 X10'3 (1.8-7.7); NEUTROPHILS % (AUTO) 68.3 % (42-75); PLATELET COUNT 123 X10'3 (140-440); RED BLOOD COUNT 2.99 X10'6 (4.20-5.60); RED CELL DISTRIBUTION WIDTH 14.9 % (11.5-14.5); WHITE BLOOD COUNT 7.9 X10'3 (4.5-11.0)
[2018-06-20 11:31] LABS: PARTIAL THROMBOPLASTIN TIME 51 SECONDS (22-32); PROTHROMBIN TIME 19.7 SECONDS (9.0-12.0)
[2018-06-20 11:52] VITALS: BP 119/81
[2018-06-20] MEDS: haloperidol lactate 5mg/ml inj IM PRN (14:45)
[2018-06-20] MEDS: LORazepam 2 mg/ml vial IV PRN (17:23)
[2018-06-20 20:00] VITALS: BP 114/67
[2018-06-20] MEDS: CefTRIAXone/D5W-Rocephin 1gm 50 ML IV SCH (22:03)
[2018-06-21] VITALS: BP 119/87
[2018-06-21] MEDS: lactulose 20gm/30ml cup PO SCH ×4 (01:44→20:01)
[2018-06-21] MEDS: LORazepam 2 mg/ml vial IV PRN ×3 (01:45→16:32)
[2018-06-21 08:00] VITALS: BP 112/78
[2018-06-21] MEDS: K and/or MAG REPLACEMENT MC SCH (08:00)
[2018-06-21] MEDS: CefTRIAXone/D5W-Rocephin 1gm 50 ML IV SCH (08:52)
[2018-06-21] MEDS: thiamine 100mg tablet PO SCH (08:54)
[2018-06-21] MEDS: spironolactone 50 MG tablet PO SCH (08:54)
[2018-06-21] MEDS: magnesium oxide 400mg tablet PO SCH (08:54)
[2018-06-21] MEDS: folic acid 1mg tablet PO SCH (08:54)
[2018-06-21] MEDS: furosemide 20MG tablet PO SCH (08:55)
[2018-06-21] MEDS: lactobacillus rhamnosus 10,000 MMU CELLS/CAPSULE PO SCH ×2 (08:55→20:00)
[2018-06-21] MEDS: pantoprazole 40mg Tablet.DR PO SCH ×2 (08:55→20:00)
[2018-06-21] MEDS: multivitamins, therapeutics tablet PO SCH (08:55)
[2018-06-21] MEDS: rifaximin 550mg tablet PO SCH ×2 (08:55→20:00)
[2018-06-21] MEDS: hydrOXYzine 10 MG tablet PO PRN (08:59)
[2018-06-21 12:00] VITALS: BP 115/64
[2018-06-21 13:37] LABS: ALANINE AMINOTRANSFERASE 40 U/L (12-78); ALBUMIN 1.8 G/DL (3.4-5.0); ALKALINE PHOSPHATASE 144 IU/L (46-116); ANION GAP 8 (8-16); ASPARTATE AMINO TRANSFERASE 71 U/L (10-37); BILIRUBIN,TOTAL 6.3 MG/DL (0.1-1.0); BLOOD UREA NITROGEN 16 MG/DL (7-18); BUN/CREATININE RATIO 11.1 (6.6-38.0); CALCIUM 8.4 MG/DL (8.5-10.1); CHLORIDE 92 MMOL/L (99-107); CREATININE 1.44 MG/DL (0.40-0.90); POTASSIUM 4.9 MMOL/L (3.5-5.1); SODIUM 123 MMOL/L (135-145); TOTAL CARBON DIOXIDE 23.4 MMOL/L (24-32); eGFR 39 ML/MIN
[2018-06-21 13:38] LABS: ALBUMIN/GLOBULIN RATIO 0.4 (1.1-1.5); GLUCOSE 111 MG/DL (70-104); TOTAL PROTEIN 6.3 G/DL (6.4-8.2)
[2018-06-21 15:57] LABS: HEMATOCRIT 29.2 % (35.0-45.0); HEMOGLOBIN 9.7 g/dl (12.0-16.0); MEAN CORPUSCULAR HEMOGLOBIN 37.2 PG (27.0-31.0); MEAN CORPUSCULAR HGB CONC 33.3 % (33.0-36.5); MEAN CORPUSCULAR VOLUME 111.7 FL (78-98); MEAN PLATELET VOLUME 8.3 FL (7.4-10.4); RED BLOOD COUNT 2.62 X10'6 (4.20-5.60); RED CELL DISTRIBUTION WIDTH 14.5 % (11.5-14.5); WHITE BLOOD COUNT 8.1 X10'3 (4.5-11.0)
[2018-06-21 16:17] LABS: PLATELET COUNT 98 X10'3 (140-440)
[2018-06-21 16:19] LABS: TOTAL CELLS COUNTED 100
[2018-06-21 16:20] LABS: PLATELET ESTIMATE DECREASED
[2018-06-21] MEDS ORDERED: ondansetron 4mg rapidly disintigrating tab PO PRN (16:40)
[2018-06-21 19:30] VITALS: BP 140/65
[2018-06-21] MEDS: LORazepam 2 mg/ml vial IM PRN (23:11)
[2018-06-22] VITALS: BP 119/74
[2018-06-22] MEDS: lactulose 20gm/30ml cup PO SCH ×4 (02:44→20:04)
[2018-06-22] MEDS: LORazepam 2 mg/ml vial IM PRN ×2 (05:36→16:28)
[2018-06-22 07:47] LABS: ALANINE AMINOTRANSFERASE 42 U/L (12-78); ALBUMIN 1.8 G/DL (3.4-5.0); ALKALINE PHOSPHATASE 136 IU/L (46-116); ANION GAP 9 (8-16); BILIRUBIN,TOTAL 6.2 MG/DL (0.1-1.0); BLOOD UREA NITROGEN 19 MG/DL (7-18); CALCIUM 8.2 MG/DL (8.5-10.1); CHLORIDE 93 MMOL/L (99-107); CREATININE 1.46 MG/DL (0.40-0.90); SODIUM 126 MMOL/L (135-145); TOTAL CARBON DIOXIDE 24.5 MMOL/L (24-32); eGFR 39 ML/MIN
[2018-06-22 07:56] LABS: ALBUMIN/GLOBULIN RATIO 0.4 (1.1-1.5); ASPARTATE AMINO TRANSFERASE 82 U/L (10-37); GLUCOSE 120 MG/DL (70-104); POTASSIUM 5.4 MMOL/L (3.5-5.1)
[2018-06-22 08:00] VITALS: BP 106/60
[2018-06-22] MEDS: folic acid 1mg tablet PO SCH (08:00)
[2018-06-22] MEDS: K and/or MAG REPLACEMENT MC SCH (08:00)
[2018-06-22] MEDS: lactobacillus rhamnosus 10,000 MMU CELLS/CAPSULE PO SCH ×2 (08:00→20:04)
[2018-06-22] MEDS: multivitamins, therapeutics tablet PO SCH (08:00)
[2018-06-22] MEDS: spironolactone 50 MG tablet PO SCH (08:00)
[2018-06-22] MEDS: magnesium oxide 400mg tablet PO SCH (08:00)
[2018-06-22] MEDS: furosemide 20MG tablet PO SCH (08:00)
[2018-06-22] MEDS: pantoprazole 40mg Tablet.DR PO SCH ×2 (08:00→20:04)
[2018-06-22] MEDS: thiamine 100mg tablet PO SCH (08:00)
[2018-06-22] MEDS: rifaximin 550mg tablet PO SCH ×2 (08:00→20:08)
[2018-06-22 08:30] LABS: BASOPHILS % (AUTO) 0.4 % (0-1); EOSINOPHILS # (AUTO) 0.1 X10'3 (0-0.9); EOSINOPHILS % (AUTO) 1.5 % (0-6); HEMATOCRIT 28.1 % (35.0-45.0); HEMOGLOBIN 9.4 g/dl (12.0-16.0); LYMPHOCYTES % (AUTO) 10.4 % (21-51); MEAN CORPUSCULAR HGB CONC 33.4 % (33.0-36.5); MEAN CORPUSCULAR VOLUME 110.8 FL (78-98); MEAN PLATELET VOLUME 8.6 FL (7.4-10.4); MONOCYTES # (AUTO) 1.7 X10'3 (0-0.9); MONOCYTES % (AUTO) 18.5 % (2-12); NEUTROPHILS # (AUTO) 6.3 X10'3 (1.8-7.7); NEUTROPHILS % (AUTO) 69.2 % (42-75); PLATELET COUNT 86 X10'3 (140-440); RED BLOOD COUNT 2.53 X10'6 (4.20-5.60); RED CELL DISTRIBUTION WIDTH 14.3 % (11.5-14.5); WHITE BLOOD COUNT 9.1 X10'3 (4.5-11.0)
[2018-06-22] MEDS: CefTRIAXone 1000mg IM Kit (w/lidocaine diluent) IM SCH (09:09)
[2018-06-22 12:24] VITALS: BP 88/54
[2018-06-22] MEDS ORDERED: Lactulose Enema **for rectal use only RC ONE ×2 (15:30)
[2018-06-22 18:00] VITALS: BP 120/74
[2018-06-23] VITALS: BP 107/68
[2018-06-23] MEDS: LORazepam 2 mg/ml vial IM PRN ×3 (00:54→16:45)
[2018-06-23] MEDS: lactulose 20gm/30ml cup PO SCH ×4 (01:23→19:42)
[2018-06-23 08:00] VITALS: BP 103/62
[2018-06-23] MEDS: K and/or MAG REPLACEMENT MC SCH (08:00)
[2018-06-23] MEDS: rifaximin 550mg tablet PO SCH ×2 (08:21→19:42)
[2018-06-23] MEDS: furosemide 20MG tablet PO SCH (08:21)
[2018-06-23] MEDS: spironolactone 50 MG tablet PO SCH (08:22)
[2018-06-23] MEDS: folic acid 1mg tablet PO SCH (08:23)
[2018-06-23] MEDS: pantoprazole 40mg Tablet.DR PO SCH ×2 (08:23→19:42)
[2018-06-23] MEDS: lactobacillus rhamnosus 10,000 MMU CELLS/CAPSULE PO SCH ×2 (08:23→19:42)
[2018-06-23] MEDS: multivitamins, therapeutics tablet PO SCH (08:23)
[2018-06-23] MEDS: magnesium oxide 400mg tablet PO SCH (08:23)
[2018-06-23] MEDS: thiamine 100mg tablet PO SCH (08:23)
[2018-06-23] MEDS: CefTRIAXone 1000mg IM Kit (w/lidocaine diluent) IM SCH (08:25)
[2018-06-23 11:50] VITALS: BP 121/74
[2018-06-23 13:11] LABS: ALANINE AMINOTRANSFERASE 37 U/L (12-78); ALBUMIN 1.7 G/DL (3.4-5.0); ALKALINE PHOSPHATASE 150 IU/L (46-116); ANION GAP 9 (8-16); ASPARTATE AMINO TRANSFERASE 74 U/L (10-37); BILIRUBIN,TOTAL 5.5 MG/DL (0.1-1.0); BLOOD UREA NITROGEN 20 MG/DL (7-18); BUN/CREATININE RATIO 10.9 (6.6-38.0); CALCIUM 8.3 MG/DL (8.5-10.1); CHLORIDE 94 MMOL/L (99-107); CREATININE 1.83 MG/DL (0.40-0.90); SODIUM 128 MMOL/L (135-145); TOTAL CARBON DIOXIDE 24.8 MMOL/L (24-32); eGFR 30 ML/MIN
[2018-06-23 13:12] LABS: ALBUMIN/GLOBULIN RATIO 0.4 (1.1-1.5); GLUCOSE 122 MG/DL (70-104); POTASSIUM 4.5 MMOL/L (3.5-5.1)
[2018-06-23 13:29] LABS: BASOPHILS # (AUTO) 0.1 X10'3 (0-0.2); BASOPHILS % (AUTO) 1.2 % (0-1); EOSINOPHILS # (AUTO) 0.1 X10'3 (0-0.9); EOSINOPHILS % (AUTO) 0.7 % (0-6); HEMATOCRIT 27.7 % (35.0-45.0); HEMOGLOBIN 9.2 g/dl (12.0-16.0); LYMPHOCYTES # (AUTO) 1.1 X10'3 (1.1-4.8); LYMPHOCYTES % (AUTO) 13.5 % (21-51); MEAN CORPUSCULAR HEMOGLOBIN 36.8 PG (27.0-31.0); MEAN CORPUSCULAR HGB CONC 33.3 % (33.0-36.5); MEAN CORPUSCULAR VOLUME 110.4 FL (78-98); MEAN PLATELET VOLUME 8.6 FL (7.4-10.4); MONOCYTES # (AUTO) 1.6 X10'3 (0-0.9); MONOCYTES % (AUTO) 19.4 % (2-12); NEUTROPHILS # (AUTO) 5.3 X10'3 (1.8-7.7); NEUTROPHILS % (AUTO) 65.2 % (42-75); PLATELET COUNT 94 X10'3 (140-440); RED BLOOD COUNT 2.51 X10'6 (4.20-5.60); RED CELL DISTRIBUTION WIDTH 14.6 % (11.5-14.5); WHITE BLOOD COUNT 8.1 X10'3 (4.5-11.0)
[2018-06-23 19:00] VITALS: BP 109/70
[2018-06-24] VITALS: BP 140/75
[2018-06-24] MEDS: lactulose 20gm/30ml cup PO SCH ×4 (02:36→22:01)
[2018-06-24 06:00] VITALS: BP 106/66
[2018-06-24] MEDS: K and/or MAG REPLACEMENT MC SCH (08:00)
[2018-06-24] MEDS: CefTRIAXone 1000mg IM Kit (w/lidocaine diluent) IM SCH (08:25)
[2018-06-24] MEDS: magnesium oxide 400mg tablet PO SCH (08:26)
[2018-06-24] MEDS: folic acid 1mg tablet PO SCH (08:26)
[2018-06-24] MEDS: rifaximin 550mg tablet PO SCH ×2 (08:26→20:00)
[2018-06-24] MEDS: multivitamins, therapeutics tablet PO SCH (08:26)
[2018-06-24] MEDS: furosemide 20MG tablet PO SCH (08:26)
[2018-06-24] MEDS: thiamine 100mg tablet PO SCH (08:26)
[2018-06-24] MEDS: lactobacillus rhamnosus 10,000 MMU CELLS/CAPSULE PO SCH ×2 (08:26→20:00)
[2018-06-24] MEDS: spironolactone 50 MG tablet PO SCH (08:26)
[2018-06-24] MEDS: pantoprazole 40mg Tablet.DR PO SCH ×2 (08:26→20:00)
[2018-06-24 11:00] VITALS: BP 119/53
[2018-06-24 11:36] LABS: BASOPHILS # (AUTO) 0.1 X10'3 (0-0.2); EOSINOPHILS # (AUTO) 0.1 X10'3 (0-0.9); HEMATOCRIT 30.1 % (35.0-45.0); LYMPHOCYTES # (AUTO) 1.7 X10'3 (1.1-4.8); LYMPHOCYTES % (AUTO) 21.6 % (21-51); MEAN CORPUSCULAR HEMOGLOBIN 37.1 PG (27.0-31.0); MEAN CORPUSCULAR HGB CONC 33.3 % (33.0-36.5); MEAN CORPUSCULAR VOLUME 111.3 FL (78-98); MEAN PLATELET VOLUME 8.2 FL (7.4-10.4); MONOCYTES # (AUTO) 1.2 X10'3 (0-0.9); MONOCYTES % (AUTO) 15.3 % (2-12); NEUTROPHILS # (AUTO) 4.7 X10'3 (1.8-7.7); NEUTROPHILS % (AUTO) 61.1 % (42-75); PLATELET COUNT 100 X10'3 (140-440); RED BLOOD COUNT 2.71 X10'6 (4.20-5.60); RED CELL DISTRIBUTION WIDTH 15.1 % (11.5-14.5); WHITE BLOOD COUNT 7.8 X10'3 (4.5-11.0)
[2018-06-24 11:58] LABS: ALANINE AMINOTRANSFERASE 45 U/L (12-78); ALBUMIN 1.8 G/DL (3.4-5.0); ALKALINE PHOSPHATASE 151 IU/L (46-116); ANION GAP 9 (8-16); ASPARTATE AMINO TRANSFERASE 74 U/L (10-37); BILIRUBIN,TOTAL 5.8 MG/DL (0.1-1.0); BLOOD UREA NITROGEN 22 MG/DL (7-18); BUN/CREATININE RATIO 11.9 (6.6-38.0); CALCIUM 8.6 MG/DL (8.5-10.1); CHLORIDE 98 MMOL/L (99-107); CREATININE 1.85 MG/DL (0.40-0.90); POTASSIUM 4.9 MMOL/L (3.5-5.1); SODIUM 133 MMOL/L (135-145); TOTAL CARBON DIOXIDE 26.5 MMOL/L (24-32); eGFR 29 ML/MIN
[2018-06-24 12:12] LABS: ALBUMIN/GLOBULIN RATIO 0.4 (1.1-1.5); GLUCOSE 131 MG/DL (70-104); TOTAL PROTEIN 6.4 G/DL (6.4-8.2)
[2018-06-24 20:00] VITALS: BP 132/66
[2018-06-25] VITALS: BP 151/58
[2018-06-25] MEDS: lactulose 20gm/30ml cup PO SCH ×4 (03:29→20:00)
[2018-06-25 06:20] LABS: BASOPHILS # (AUTO) 0.1 X10'3 (0-0.2); BASOPHILS % (AUTO) 1.4 % (0-1); EOSINOPHILS # (AUTO) 0.1 X10'3 (0-0.9); EOSINOPHILS % (AUTO) 0.8 % (0-6); HEMATOCRIT 31.3 % (35.0-45.0); HEMOGLOBIN 10.3 g/dl (12.0-16.0); LYMPHOCYTES # (AUTO) 1.4 X10'3 (1.1-4.8); LYMPHOCYTES % (AUTO) 18.5 % (21-51); MEAN CORPUSCULAR HEMOGLOBIN 36.7 PG (27.0-31.0); MEAN CORPUSCULAR HGB CONC 32.9 % (33.0-36.5); MEAN CORPUSCULAR VOLUME 111.3 FL (78-98); MEAN PLATELET VOLUME 8.5 FL (7.4-10.4); MONOCYTES # (AUTO) 1.5 X10'3 (0-0.9); MONOCYTES % (AUTO) 19.2 % (2-12); NEUTROPHILS # (AUTO) 4.6 X10'3 (1.8-7.7); NEUTROPHILS % (AUTO) 60.1 % (42-75); PLATELET COUNT 101 X10'3 (140-440); RED BLOOD COUNT 2.81 X10'6 (4.20-5.60); RED CELL DISTRIBUTION WIDTH 14.7 % (11.5-14.5); WHITE BLOOD COUNT 7.6 X10'3 (4.5-11.0)
[2018-06-25 06:43] LABS: ALANINE AMINOTRANSFERASE 49 U/L (12-78); ALKALINE PHOSPHATASE 162 IU/L (46-116); ANION GAP 11 (8-16); ASPARTATE AMINO TRANSFERASE 84 U/L (10-37); BILIRUBIN,TOTAL 6.6 MG/DL (0.1-1.0); BLOOD UREA NITROGEN 25 MG/DL (7-18); BUN/CREATININE RATIO 13.7 (6.6-38.0); CHLORIDE 100 MMOL/L (99-107); CREATININE 1.83 MG/DL (0.40-0.90); POTASSIUM 5.2 MMOL/L (3.5-5.1); SODIUM 137 MMOL/L (135-145); TOTAL CARBON DIOXIDE 26.3 MMOL/L (24-32); eGFR 30 ML/MIN
[2018-06-25 06:47] LABS: ALBUMIN/GLOBULIN RATIO 0.4 (1.1-1.5); GLUCOSE 126 MG/DL (70-104); TOTAL PROTEIN 6.7 G/DL (6.4-8.2)
[2018-06-25 07:46] VITALS: BP 151/59
[2018-06-25 07:50] LABS: PLATELET ESTIMATE DECREASED
[2018-06-25 07:51] LABS: ANISOCYTOSIS 1+; BURR CELLS 1+; POLYCHROMASIA 2+
[2018-06-25 07:53] LABS: TARGET CELLS 1+
[2018-06-25] MEDS: K and/or MAG REPLACEMENT MC SCH (08:00)
[2018-06-25] MEDS: pantoprazole 40mg Tablet.DR PO SCH ×2 (08:00→20:00)
[2018-06-25] MEDS: spironolactone 50 MG tablet PO SCH (08:00)
[2018-06-25] MEDS: magnesium oxide 400mg tablet PO SCH (08:00)
[2018-06-25] MEDS: furosemide 20MG tablet PO SCH (08:00)
[2018-06-25] MEDS: rifaximin 550mg tablet PO SCH ×2 (08:00→20:00)
[2018-06-25] MEDS: lactobacillus rhamnosus 10,000 MMU CELLS/CAPSULE PO SCH ×2 (08:00→20:00)
[2018-06-25] MEDS: folic acid 1mg tablet PO SCH (08:00)
[2018-06-25] MEDS: thiamine 100mg tablet PO SCH (08:00)
[2018-06-25] MEDS: multivitamins, therapeutics tablet PO SCH (08:00)
[2018-06-25] MEDS: CefTRIAXone 1000mg IM Kit (w/lidocaine diluent) IM SCH (09:40)
[2018-06-25] MEDS: morphine 10mg/0.5ml (conc. morphine) oral syringe PO PRN (12:00)
[2018-06-25 12:32] VITALS: BP 105/72
[2018-06-25] MEDS: Lactulose Enema **for rectal use only RC PRN ×4 (13:58→22:44)
[2018-06-25 18:45] VITALS: BP 90/51
[2018-06-25 23:00] VITALS: BP 83/48
[2018-06-26] MEDS: lactulose 20gm/30ml cup PO SCH ×4 (02:00→20:00)
[2018-06-26 05:51] LABS: BASOPHILS % (AUTO) 0.5 % (0-1); EOSINOPHILS # (AUTO) 0.1 X10'3 (0-0.9); HEMOGLOBIN 11.3 g/dl (12.0-16.0); LYMPHOCYTES # (AUTO) 1.4 X10'3 (1.1-4.8); LYMPHOCYTES % (AUTO) 16.4 % (21-51); MEAN CORPUSCULAR HGB CONC 33.1 % (33.0-36.5); MEAN CORPUSCULAR VOLUME 111.6 FL (78-98); MEAN PLATELET VOLUME 8.1 FL (7.4-10.4); MONOCYTES # (AUTO) 1.4 X10'3 (0-0.9); MONOCYTES % (AUTO) 16.3 % (2-12); NEUTROPHILS # (AUTO) 5.6 X10'3 (1.8-7.7); NEUTROPHILS % (AUTO) 65.8 % (42-75); PLATELET COUNT 84 X10'3 (140-440); RED BLOOD COUNT 3.05 X10'6 (4.20-5.60); RED CELL DISTRIBUTION WIDTH 14.6 % (11.5-14.5); WHITE BLOOD COUNT 8.5 X10'3 (4.5-11.0)
[2018-06-26 06:17] LABS: ALANINE AMINOTRANSFERASE 49 U/L (12-78); ALKALINE PHOSPHATASE 172 IU/L (46-116); ANION GAP 12 (8-16); ASPARTATE AMINO TRANSFERASE 76 U/L (10-37); BILIRUBIN,TOTAL 6.4 MG/DL (0.1-1.0); BLOOD UREA NITROGEN 28 MG/DL (7-18); BUN/CREATININE RATIO 12.2 (6.6-38.0); CHLORIDE 101 MMOL/L (99-107); POTASSIUM 4.6 MMOL/L (3.5-5.1); SODIUM 137 MMOL/L (135-145); TOTAL CARBON DIOXIDE 24.4 MMOL/L (24-32); eGFR 23 ML/MIN
[2018-06-26 06:19] LABS: ALBUMIN 1.8 G/DL (3.4-5.0); ALBUMIN/GLOBULIN RATIO 0.4 (1.1-1.5); GLUCOSE 132 MG/DL (70-104); TOTAL PROTEIN 6.6 G/DL (6.4-8.2)
[2018-06-26 07:00] VITALS: BP 86/69
[2018-06-26] MEDS: pantoprazole 40mg Tablet.DR PO SCH ×2 (08:00→20:00)
[2018-06-26] MEDS: multivitamins, therapeutics tablet PO SCH (08:00)
[2018-06-26] MEDS: lactobacillus rhamnosus 10,000 MMU CELLS/CAPSULE PO SCH (08:00)
[2018-06-26] MEDS: K and/or MAG REPLACEMENT MC SCH (08:00)
[2018-06-26] MEDS: thiamine 100mg tablet PO SCH (08:00)
[2018-06-26] MEDS: spironolactone 50 MG tablet PO SCH (08:00)
[2018-06-26] MEDS: magnesium oxide 400mg tablet PO SCH (08:00)
[2018-06-26] MEDS: rifaximin 550mg tablet PO SCH ×2 (08:00→20:00)
[2018-06-26] MEDS: folic acid 1mg tablet PO SCH (08:00)
[2018-06-26] MEDS: furosemide 20MG tablet PO SCH (08:00)
[2018-06-26] MEDS: CefTRIAXone 1000mg IM Kit (w/lidocaine diluent) IM SCH (08:23)
[2018-06-26] MEDS ORDERED: LIDOcaine 1%/PF 5ML 10 MG/ML VIAL ONE (10:28)
[2018-06-26] MEDS ORDERED: morphine 10mg/ml inj. IV PRN (10:50)
[2018-06-26] MEDS ORDERED: morphine 10mg/0.5ml (conc. morphine) oral syringe PO PRN (10:50)
[2018-06-26 11:16] VITALS: BP 97/60
[2018-06-26] MEDS: morphine 10mg/0.5ml (conc. morphine) oral syringe PO PRN (19:36)
[2018-06-26 20:00] VITALS: BP 90/53
[2018-06-26] MEDS: docusate sod 100mg capsule PO SCH (20:00)
[2018-06-27] VITALS: BP 97/60
[2018-06-27] MEDS: lactulose 20gm/30ml cup PO SCH ×5 (02:00→21:08)
[2018-06-27 07:00] VITALS: BP 81/47
[2018-06-27] MEDS: pantoprazole 40mg Tablet.DR PO SCH ×2 (07:02→20:00)
[2018-06-27] MEDS: spironolactone 50 MG tablet PO SCH (07:02)
[2018-06-27] MEDS: rifaximin 550mg tablet PO SCH ×2 (07:02→20:00)
[2018-06-27] MEDS: thiamine 100mg tablet PO SCH (07:02)
[2018-06-27] MEDS: folic acid 1mg tablet PO SCH (07:02)
[2018-06-27] MEDS: furosemide 20MG tablet PO SCH (07:02)
[2018-06-27] MEDS: docusate sod 100mg capsule PO SCH ×2 (07:02→20:00)
[2018-06-27 20:00] VITALS: BP 80/48
[2018-06-28 08:00] VITALS: BP 83/39
[2018-06-28] MEDS: pantoprazole 40mg Tablet.DR PO SCH (08:00)
[2018-06-28] MEDS: lactulose 20gm/30ml cup PO SCH ×3 (08:00→20:00)
[2018-06-28] MEDS: furosemide 20MG tablet PO SCH (08:00)
[2018-06-28] MEDS: rifaximin 550mg tablet PO SCH (08:00)
[2018-06-28] MEDS: spironolactone 50 MG tablet PO SCH (08:00)
[2018-06-28] MEDS: folic acid 1mg tablet PO SCH (08:00)
[2018-06-28] MEDS: thiamine 100mg tablet PO SCH (08:00)
[2018-06-28] MEDS: docusate sod 100mg capsule PO SCH (08:00)
[2018-06-28] MEDS ORDERED: acetaminophen 120MG suppository, rectal RC PRN (12:00)
[2018-06-28] MEDS ORDERED: bisacodyl 10mg suppository rectal RC PRN (12:00)
[2018-06-28 20:00] VITALS: BP 105/87
[2018-06-28] MEDS: morphine 10mg/0.5ml (conc. morphine) oral syringe PO PRN (22:59)
[2018-06-29] MEDS: lactulose 20gm/30ml cup PO SCH ×2 (02:00→08:00)
[2018-06-29 08:00] VITALS: BP 84/40
== END 2018-06-29 13:35 | disposition hospice, inpatient (51) | DRG 280 ==
LOC: ER 13:50 → ED HOLD 16:42 → SUR 3N 19:45
PROVIDERS: ADMIT Family Medicine; ATTEND Internal Medicine
PROC: 0W9G3ZZ Drainage of Peritoneal Cavity, Percutaneous Approach (ICD-10-PCS; principal; 2018-06-20)
DX: K70.31 Alcoholic cirrhosis of liver with ascites (principal); E43 Unspecified severe protein-calorie malnutrition; K72.90 Hepatic failure, unspecified without coma; D69.6 Thrombocytopenia, unspecified; N17.9 Acute kidney failure, unspecified; N18.3 Chronic kidney disease, stage 3 (moderate); E87.1 Hypo-osmolality and hyponatremia; E86.0 Dehydration; D63.8 Anemia in other chronic diseases classified elsewhere; Z51.5 Encounter for palliative care; Z66 Do not resuscitate; B19.20 Unspecified viral hepatitis C without hepatic coma; F12.90 Cannabis use, unspecified, uncomplicated; Z98.891 History of uterine scar from previous surgery; Z90.710 Acquired absence of both cervix and uterus; Z90.722 Acquired absence of ovaries, bilateral; Z91.14 Patient's other noncompliance with medication regimen; Z68.31 Body mass index [BMI] 31.0-31.9, adult
CPT/HCPCS: 36415; 49083; 76705; 80053; 80305; 81001; 82140; 83605; 83735; 84145; 85025; 85610; 85730; 87040; 87070; 87075; 87077; 87088; 87186; 93005; 99285; G0378; J0696; J1630; J2001; J2060; J2270; J2405; J7030